=== PATIENT | male | born 1960 | race Caucasian/White ===

== ENCOUNTER 2024-02-25 08:58 | Outpatient (RCR) | payer OTHER, SELFPAY | END 2024-02-25 23:59 | disposition home or self-care (01) | LOC: RPT 08:58 | PROVIDERS: ATTENDING PHYSICIAN Physician Assistant | DX: G20.A1 Parkinson's disease without dyskinesia, without mention of fluctuations (principal); Z73.6 Limitation of activities due to disability | CPT/HCPCS: 97110; 97112; 97163; 97166; 97530; 97535 ==

== ENCOUNTER 2024-03-06 14:20 | Outpatient (RCR) | payer OTHER, SELFPAY | END 2024-03-06 23:59 | disposition home or self-care (01) | LOC: RPT 14:20 | PROVIDERS: ATTENDING PHYSICIAN Physician Assistant | DX: G20.A1 Parkinson's disease without dyskinesia, without mention of fluctuations (principal); Z73.6 Limitation of activities due to disability | CPT/HCPCS: 97110; 97112; 97530 ==

== ENCOUNTER → 2024-04-17 09:34 | Outpatient (REF) | payer OTHER, SELFPAY | LOC: RAD 09:34 | PROVIDERS: ATTENDING PHYSICIAN Physician Assistant | DX: M17.0 Bilateral primary osteoarthritis of knee (principal) | CPT/HCPCS: 73564 ==

== ENCOUNTER 2024-05-15 16:10 | Outpatient (RCR) | payer OTHER, SELFPAY | END 2024-05-15 23:59 | disposition home or self-care (01) | LOC: RPT 16:10 | PROVIDERS: ATTENDING PHYSICIAN Physician Assistant | DX: G89.29 Other chronic pain (principal); M25.561 Pain in right knee; M25.562 Pain in left knee; G20.A1 Parkinson's disease without dyskinesia, without mention of fluctuations; Z73.6 Limitation of activities due to disability | CPT/HCPCS: 97110; 97162; 97530 ==

== ENCOUNTER 2024-11-10 19:18 | Inpatient (IN) | payer OTHER, SELFPAY ==
[2024-11-10] VITALS (20 sets, daily range): BP systolic 119–154; BP diastolic 47–81; BMI 35.5; BMI 34.8
[2024-11-10 10:41] LABS: % Basophils 0.3 % (0-2); % Eosinophils 1.2 % (0-6); % Immature Granulocytes 0.7 % (0-0.5); % Monocytes 5.8 % (1.7-9.3); Absolute Eosinophils 0.1 10^3/uL (0-0.7); Absolute Immature Granulocytes 0.1 10^3/uL (0-0.05); Absolute Lymphocytes 1.6 10^3/uL (1.2-3.4); Absolute Monocytes 0.6 10^3/uL (0.1-0.6); Absolute Neutrophils 8.3 10^3/uL (1.4-6.5); Hematocrit 18.3 % (39.0-52.0); Hemoglobin 5.6 g/dL (13.0-18.0); Mean Corp Hgb Conc. 30.6 g/dL (33.0-37.0); Mean Corpuscular Volume 85.1 fL (80.0-94.0); Mean Platelet Volume 9.5 fL (7.4-10.4); Nucleated Red Blood Cells % 0 % (-); Platelet Count 184 10^3/uL (130-400); Red Blood Cell Count 2.15 10^6/uL (4.70-6.10); Red Cell Dist. Width 15.5 % (11.5-14.5); White Blood Cell Count 10.7 10^3/uL (4.8-10.8)
[2024-11-10 11:17] LABS: ALT (SGPT) 11 U/L (0-50); AST (SGOT) 24 U/L (17-59); Albumin 3.5 g/dl (3.5-5.0); Alkaline Phosphatase 84 U/L (38-126); Blood Urea Nitrogen 30 mg/dl (9-20); Calcium 8.6 mg/dl (8.4-10.2); Carbon Dioxide 23 mmol/L (22-30); Chloride 104 mmol/L (98-107); Estimated Creatinine Clearance 95 ml/min; Glucose 109 mg/dl (70-99); Potassium 4.2 mmol/L (3.5-5.1); Sodium 136 mmol/L (135-145); Total Bilirubin 0.5 mg/dl (0.2-1.3); Total Protein 5.5 g/dl (6.3-8.2); eGFR > 60.00
--- NOTE | 2024-11-10 11:29 | ED.GENMED ---
History of Present Illness
General
Chief Complaint: Abnormal Lab Value
Source: patient
Exam Limitations: none
Time Seen by Provider: 11/10/24 10:29
Nursing documentation reviewed up to this point in time: agreed with
History of Present Illness
History of Present Illness:
64-year-old male with history of Parkinson's, HTN, GERD, depression presents for low hemoglobin. He saw his PCP yesterday because he has had dyspnea on exertion, fatigue and lightheadedness. He denies chest pain. He denies abdominal pain. He has
been having maroon-colored stools for the past 7 days.
Denies NSAID use
Past History
Past History
ED Past Medical History: GERD, HTN, Psychiatric (Depression) and Other (Parkinson's)
ED Past Surgical History: Other (Hernia repair)
Social History
Tobacco: Non-smoker
Alcohol: None
Personal: Single
Living: alone
Employment: Employed
Review of Systems
Review of Systems
Allergies reviewed?: Yes
All Other Systems: ROS reviewed and negative except as documented in HPI and ROS
Constitutional: Reports fatigue; Denies fever
Respiratory: Reports trouble breathing (POA)
Cardiac: Denies chest pain
ABD/GI: Reports bloody stools; Denies abdominal pain, nausea, vomiting, diarrhea or anorexia
: Denies dysuria, frequency or difficulty voiding
Musculoskeletal: Reports no symptoms
Skin: Reports no symptoms
Neurological: Reports no symptoms
Phy Exam
Physical Exam
Physical Exam:
GENERAL: No acute distress. A&Ox3.
CONSTITUTIONAL: Afebrile.
EYES: clear, conjunctivae normal
ENMT: moist mucus membranes, Pharynx nl
RESPIRATORY: Regular respirations, nonlabored, lungs clear.
CARDIOVASCULAR: Regular rate and rhythm, no murmurs, no rubs.
GI: Soft, nontender, normal BS
Rectal: Maroon-colored stool heme positive
MUSCULOSKELETAL: Moves with ease. Well perfused.
SKIN: Warm, dry, pink
PSYCH: Normal mood and affect. Well kept, interactive and appropriate
NEUROLOGIC: Awake, alert and oriented. No focal neurological deficits
Sepsis
Sepsis Screening
Sepsis Assessment: Sepsis Ruled Out
Sepsis Screen
Sepsis Screen: Sepsis Ruled Out
Date: 11/12/24
Time: 08:05
Course
Orders/Labs/Results
Orders:
Orders
11/10/24 Lunch
Clear Liquid
At Your Request: Limited, Director Of Engineering Required
Clear Liquids: No red liquids
11/10/24 10:02
Type And Crossmatch [Type+Screen] Urgent
Complete Blood Count/With Diff Urgent
Comprehensive Metabolic Panel Urgent
Ferritin Routine
Comment: ADD ON
Folate Routine
Comment: ADD ON
Iron Routine
Comment: ADD ON
Total Iron Binding Routine
Comment: ADD ON
Vitamin B12 Routine
Comment: ADD ON
11/10/24 10:58
ABO2 Urgent
BBK Wristband Number:
Associate notified that ABO2 has been ordered: BLUE-ER
Date: 11/10/24
Time: 10:18
[employer] Officer ID: [id number]
11/10/24 11:09
* Blood Bank Products Urgent
Blood Bank Products: *Packed RBC Leuko(PRBC's)
Quantity: 2
Transfuse Today: Yes
Reason: Bleeding
Other reason: Anemia
IV Insert/Care/Rem.- Treatment PRN
11/10/24 11:42
Consult Gastroenterology [GASTROINTESTINAL CONSULT] Urgent
Consulting Provider: Qing Warner
Was physician already notified: Yes
Reason for consult: GI bleed, maroon stools, Hgb 5.6
11/10/24 12:08
Add On- LAB Routine
Tests Added?: iron, TIBC, % sat, ferritin, B12, folate
11/10/24 17:51
Code Status As Directed
Resuscitation Status: Full Code
Bisacodyl [Dulcolax] 10 mg RECTAL [id number] PRN
Docusate W/Senna [Senokot-S] 1 tablet PO BIDPRN PRN
Polyethylene Glycol Powder [Miralax] 17 grams PO DAILYPRN PRN
Head of Bed-Restrictions As Directed
Intake/ Output As Directed
Frequency: Per unit guidelines
Weight As Directed
Frequency: Daily
11/10/24 17:52
Activity As Directed
Activity Level: Out of Bed-Early Mobility
Vital Signs As Directed
Frequency: Per unit guidelines
11/10/24 17:57
Acetaminophen [Tylenol] 650 mg PO Q4HPRN PRN
Ondansetron Injectable [Zofran] 4 mg IV Q6HPRN PRN
11/10/24 17:59
Admit/Transfer Patient As Directed
Co-Sign Provider:
Level of Care: Inpatient admission
Assign to:: Telemetry
Physician / Group: Hospitalist
Diagnosis: GI bleeding
Reason for Telemetry: Other
Other Reason for Telemetry: GI bleeding
Date to Stop Telemetry: 11/12/24
Time to Stop Telemetry: 11:00
Reason for Hospitalization: Symptomatic anemia
Expected length of stay greater than two midnights?: Yes
ELOS- Estimated Length of Stay in days: 3
I certify the patient meets the requirements for IP care: Yes
Sequential Compression Device [Pneumatic Compression Sleeves] As Directed
Type: Knee high
DX Deep Vein Thrombosis Video Routine
11/10/24 18:00
0.9% Sodium Chloride 1000 ml [Nss] 1,000 ml IV 120 mls/hr
PRN Pain Medication Management As Directed
May give lesser potent ordered pain med per pt: Yes
preference::
Protocol:: Medication orders for pain may be administered in a
manner that supports deferring to patient preference
when the pt is:
- Requesting an ordered lesser potent pain medication.
Least to most potent pain medications are defined
as: acetaminophen < NSAID < tramadol < opioids
(morphine, oxycodone, hydromorphone).
- Requesting a lesser dose of the same medication IF
ORDERED.
- Requesting a less intrusive route of administration
if both routes are prescribed by the provider (PO <
IV).
11/10/24 19:43
Carbidopa/Levodopa [Sinemet 25-100] 2 tablet PO Q6
11/10/24 20:00
Pantoprazole [Protonix IV] 40 mg IV BID
11/10/24 20:52
H&H Q6H
Comment: 4 hours after last transfusion
11/11/24 Breakfast
Clear Liquid
At Your Request: Limited, Director Of Engineering Required
11/11/24 06:36
Comprehensive Metabolic Panel IN AM
Creatine Phosphokinase IN AM
Magnesium IN AM
NT-proBNP IN AM
11/11/24 08:00
Escitalopram Oxalate [Lexapro] 5 mg PO DAILY
Losartan [Cozaar] 100 mg PO DAILY
11/11/24 11:27
H&H Q6H
Comment: 4 hours after last transfusion
11/12/24 11:00
DC Protocol for Telemetry ONCE
Abnormal Lab Results
11/10/24
10:02
RBC 2.15 L 10^6/uL
(4.70-6.10)
Hgb 5.6 L* g/dL
(13.0-18.0)
Hct 18.3 L* %
(39.0-52.0)
MCH 26.0 L pg
(27.0-31.0)
MCHC 30.6 L g/dL
(33.0-37.0)
RDW 15.5 H %
(11.5-14.5)
Abs Immat Gran (auto) 0.1 H 10^3/uL
(0-0.05)
Absolute Neuts (auto) 8.3 H 10^3/uL
(1.4-6.5)
Immature Gran % 0.7 H %
(0-0.5)
Neutrophils % 77.0 H %
(42.2-75.2)
Lymphocytes % 15.0 L %
(20.5-51.1)
BUN 30 H mg/dl
(9-20)
Glucose 109 H mg/dl
(70-99)
Iron 32 L ug/dl
(49-181)
% Saturation 9 L %
(20-50)
Ferritin 6.8 L ng/ml
(17.9-464.0)
Total Protein 5.5 L g/dl
(6.3-8.2)
Crossmatch IS Only See Detail
11/10/24 15:00
11/10/24 10:02
Vital Signs
Initial and Last Documented VS:
Initial Vital Signs
Temp Pulse Resp BP Pulse Ox
97.7 F 105 22 154/72 99
11/10/24 09:48 11/10/24 09:48 11/10/24 09:48 11/10/24 09:48 11/10/24 09:48
Last Documented Vital Signs
Temp Pulse Resp BP Pulse Ox
98.0 F 81 18 129/70 97
11/12/24 03:12 11/12/24 03:12 11/12/24 03:12 11/12/24 03:12 11/12/24 03:12
MDM/Problems Addressed
Differential Diagnosis Includes:
Lower GI bleed
MDM/Problems Addressed:
64-year-old male with history of Parkinson's, HTN, GERD, depression presents for low hemoglobin. He saw his PCP yesterday because he has had dyspnea on exertion, fatigue and lightheadedness. He denies chest pain. He denies abdominal pain. He has
been having maroon-colored stools for the past 7 days.
Afebrile, NAD
Denies NSAID use
CBC: Hgb 5.6 VSS
CMP: BUN elevated as to be expected with a GI bleed, otherwise normal
2 units packed red blood cells ordered
11:40 a.m.
Hospitalist notified of admission
*Critical Care Note
Total Time (30-74mins, 75-104mins- exclusive of procedures): Not Applicable
ED Attending Note
-
Portions of this chart may have been created with voice recognition software.� Occasional wrong word or��sound alike� substitutions may have occurred due to the inherent limitations of voice recognition software.
Discharge Plan
Departure
Patient Disposition: Admit
Date of Disposition: 11/10/24
Time of Disposition: 12:00
Admit to: Med/Surg
Presentation/result/management discussed w/ accepting MD/DO: Hospitalist
Condition: Fair
Discharge Problem:
GI (gastrointestinal bleed)
Interventions
Interventions:
*Risk Screen - Suicide Last Done: 11/10/24 21:42
*General Assessment Last Done: 11/10/24 09:48
*Neglect/Abuse Screening Last Done: 11/10/24 09:48
ED- Fall Risk Assessment Last Done: 11/10/24 19:34
*ED COVID-19 Vaccine History Last Done: 11/10/24 21:42
*Nursing Disposition Last Done: 11/10/24 19:34
Discharge Date and Time
Discharge Date/Time: 11/10/24 19:34
--- NOTE | 2024-11-10 11:59 | CON.GI ---
Addendum entered and electronically signed by Qing Warner MD 11/10/24 17:01:
The patient was seen and examined by me independently in collaboration with the nurse practitioner.
Past medical history/social history/medications/allergies/family history reviewed.
Lab data and imaging data reviewed.
64-year-old gentleman past medical history of Parkinson's, diverticulosis, diverticular bleeding presenting with maroon, tarry, purple stool per patient report with ongoing dyspnea, fatigue, lightheadedness and found to have hemoglobin of 5.6. BUN
30. Most likely I suspect this is a lower GI bleed perhaps diverticular. However, somewhat atypical he has been having 1 bloody bowel movement a day which has lessened since Wednesday when he first started. Diverticular bleeding typically patients
have ongoing significant bright red blood per rectum. With the intermittent blood he has been seeing, perhaps he has an AVM that is bleeding intermittently. Although I have lower suspicion this is an upper GI source the patient does multiple times
tell me that his stool was black and tarry at times as well. Therefore, to ensure he does not have an upper GI bleed I will plan for upper endoscopy tomorrow. We discussed the risk, benefits, and alternatives to upper endoscopy. The risks include
bleeding, infection, perforation, missed lesion, and cardiopulmonary complications from anesthesia. Patient is agreeable. Patient is currently getting blood transfusions. Hemoglobin should be above 7. In the interim prior to the endoscopy, will
give Protonix IV 40 twice daily. Clear liquid diet today n.p.o. after midnight. If the upper endoscopy is negative, he likely would benefit from a colonoscopy timing TBD. If overnight he develops significant bleeding recommend CTA (normal Cr).
Original Note:
Consultation
-
Date/Time Consultation Requested: 11/10/24 1145
Date/Time Consultation Performed: 11/10/24 1200
Requesting Provider: GREG Lynn
Performing Provider: GREG Leonard, Nancy Warner MD
Reason for Consultation: anemia
Medical History
Chief Complaint / HPI
Chief Complaint: rectal bleeding
History of Present Illness:
Pt is a 64yo with hx parkinson's, divertiuculosis, prior diverticular bleed, hemorrhoids, depression, GERD, HTN, hernia repair presents with anemia and recently noted dyspnea, fatigue,and lightheadedness. Pt also reports maroon stool for last
week. Pt state bleeding started last Wednesday with large amount of dark red stool then noted daily with BM but less amount with stool this AM. On admission hbg 5.6 with normal MCV BUN 30. ,Last colonoscopy 09/2017 colonoscopy-[facility]- IH, grade III,
diverticulosis an hx EGD 2004 with Grade B esophagitis, reflux esophagitis, non bleeding gastritis, normal duodenum bx erosions no fungal or viral inclusions and 2005 EGD Schatzki's ring, normal duodenum bx neg forrester's. Last hbg 12.8 in June
2023.
Pt otherwise admits to GERD on chronic PPI but denies dysphagia, odynophagia, nausea, vomiting, abdominal pain, chronic diarrhea, constipation or prior bleeding. No NSAID or anticoagulation use.
Past Medical History
Past Medical History: GERD, HTN, Psychiatric (depression) and Other (Parkinson's, diverticulosis, diverticular bleed, hemorrhoids )
Social History
Tobacco: Non-Smoker
Alcohol: Occasional (very rare )
Drug: None
Living: Alone
Employment: Employed
Family History
Family History: Other (father with hx pacer, mother with parkinson's )
Allergies / Home Medications
Allergy/AdvReac Type Severity Reaction Status Date / Time
No Known Allergies Allergy Verified 11/10/24 09:54
�Medication �Instructions �Recorded
aspirin 81 mg tablet,delayed 81 mg PO DAILY 11/10/24
release
carbidopa 25 mg-levodopa 100 mg 2 tab PO Q6H 11/10/24
tablet
escitalopram oxalate 5 mg tablet 5 mg PO DAILY 11/10/24
(Lexapro)
losartan 100 mg tablet 100 mg PO DAILY 11/10/24
omeprazole 20 mg tablet,delayed 20 mg PO DAILY 11/10/24
release
Review of Systems
-
History Source: Patient
Constitutional: Reports No Symptoms
EENT: Reports No Symptoms
Respiratory: Reports Trouble Breathing (recent mild with exertion )
Cardiac: Reports No Symptoms
Abdomen/GI: Reports Bloody Stools
: Reports No Symptoms
Musculoskeletal: Reports No Symptoms
Skin: Reports No Symptoms
Neurological: Reports Dizzy and Weakness
Endocrine: Reports No Symptoms
Hematologic/Lymphatic: Reports Bleeding
Vital Signs
Temp Pulse Resp BP Pulse Ox
97.7 F 86 16 128/63 98
11/10/24 09:48 11/10/24 11:00 11/10/24 11:00 11/10/24 11:00 11/10/24 11:00
Physical Exam
Exam
General: Well Developed, Well Nourished and No Apparent Distress
HEENT: Normocephalic and Anicteric
Respiratory: Clear
Cardiac: Regular Rhythm
GI: Soft, Non Tender and Non Distended
Rectal: Other (heme + maroon stool in ER)
Musculoskeletal: No Clubbing and No Cyanosis
Skin: Warm and Dry
Neuro: Awake, Alert and AO x 3
Psych: Calm
Results
WBC 10.7 10^3/uL (4.8-10.8) 11/10/24 10:02
Hgb 5.6 g/dL (13.0-18.0) L* 11/10/24 10:02
Hct 18.3 % (39.0-52.0) L* 11/10/24 10:02
MCV 85.1 fL (80.0-94.0) 11/10/24 10:02
Plt Count 184 10^3/uL (130-400) 11/10/24 10:02
Absolute Neuts (auto) 8.3 10^3/uL (1.4-6.5) H 11/10/24 10:02
Sodium 136 mmol/L (135-145) 11/10/24 10:02
Potassium 4.2 mmol/L (3.5-5.1) 11/10/24 10:02
Chloride 104 mmol/L (98-107) 11/10/24 10:02
Carbon Dioxide 23 mmol/L (22-30) 11/10/24 10:02
BUN 30 mg/dl (9-20) H 11/10/24 10:02
Creatinine 0.9 mg/dL (0.7-1.3) 11/10/24 10:02
Calcium 8.6 mg/dl (8.4-10.2) 11/10/24 10:02
Total Bilirubin 0.5 mg/dl (0.2-1.3) 11/10/24 10:02
AST 24 U/L (17-59) 11/10/24 10:02
ALT 11 U/L (0-50) 11/10/24 10:02
Alkaline Phosphatase 84 U/L (38-126) 11/10/24 10:02
Diagnostic Image Results:
Prior GI Procedures:
09/2017 colonoscopy-[facility]- IH, grade III, diverticulosis
02/2016- colonoscopy [facility] non bleeding IH diverticulosis
03/2008 colonoscopy - Diverticulosis colon.- Internal, non bleeding, medium-sized hemorrhoids were found.
2004- EGD Grade B esophagitis, reflux esophagitis, non bleeding gastritis, normal duodenum bx erosions no fungal or viral inclusions
2--6 EGD Schatzki's ring, normal duodenum bx neg forrester's
Assessment / Plan
-
Pt is a 64yo with hx parkinson's, diverticulosis, prior diverticular bleed, hemorrhoids, depression, GERD, HTN, hernia repair presents with anemia and recently noted dyspnea, fatigue,and lightheadedness. Pt also reports maroon stool for last week.
Pt state bleeding started last Wednesday with large amount of dark red stool then noted daily with BM but less amount with stool this AM. On admission hbg 5.6 with normal MCV BUN 30. ,Last colonoscopy 09/2017 colonoscopy-[facility]- IH, grade III,
diverticulosis an hx EGD 2004 with Grade B esophagitis, reflux esophagitis, non bleeding gastritis, normal duodenum bx erosions no fungal or viral inclusions and 2005 EGD Schatzki's ring, normal duodenum bx neg forrester's. Last hbg 12.8 in June
2023.
-rectal bleeding
-symptomatic anemia
-hx diverticulosis and prior diverticular bleed years ago
other med problems:
-parkinson's
-GERD on chronic PPI
-schatzki's ring
-hemorrhoids
-depression
-HTN
hernia repair
PLAN:
etiology of anemia with bleeding related to underlying diverticular bleeding but noted prolonged over last week, colon lesion, hemorrhoids but noted darker in color, ectasia, vs other less likely Upper GI bleed as BUN minimal elevation at 30 and
has been on chronic PPI with no recent NSAID use
agree with transfusion
trend labs
cont PPI
will add iron studies, B12, folate
if increased bleeding consider CTA
will review with Dr. Warner for colonoscopy
ok for clear diet today
-
-
Thank you for consultation and allowing me to participate in the patient's care. Please call the telephone clerk telegraph office GI physician during the after hours with any questions or concerns.
[2024-11-10 13:11] LABS: Iron 32 ug/dl (49-181)
[2024-11-10 13:20] LABS: Percent Saturation 9 % (20-50); Total Iron Binding Capacity 334 ug/dl (261-462)
--- NOTE | 2024-11-10 14:47 | HPS.HSE ---
Addendum entered and electronically signed by Leon Vigil MD 11/10/24 20:32:
Attending Addendum-
I performed a history and physical exam of the patient and discussed his management with the resident. I reviewed the resident's note and agree with the documented findings and plan of care CC/HPI-Asked to come to ED by PCP due to low hemoglobin. He
has been having maroon colored stools for one week. Initially had 'explosion of blood' in bathroom but has decreased in quantity over the past week. States he has black tarry stools at times. Has had worsening MONGE and fatigue. Denies CP palps
syncope. Full 12 point ROS reviewed and negative except as documented Exam- vitals reviewed in EMR GEN-NAD heart RRR lungs clear abd soft LE no edema
Plan:
# Acute GI bleed with acute blood loss anemia
- transfuse 2 units PRBC
- likely upper
- start protonix IV BID
- clear liquid diet
- NPOpMN for ENDO on 11/11 per GI
- trend CBC
# Parkinson's Disease- cont Sinemet
# Depression- cont Lexapro
# HTN- cont losartan
# GERD- cont IV PPI
DVTp-SCDS
CODE Full
ACP
Patient consented to discuss, was alone, time spent explanation of advance directives, changes in health status, patient�s health care wishes if the patient becomes unable to make health decisions, goals of care, code status, and prognosis- 16
minutes
Time spent coordinating care, review of plan of care with resident, personally reviewed previous records in EMR, med rec, labs, radiology, d/w nursing, GI total time documented is exclusive of any additional time listed that was spent in advance
care planning discussion -�75 minutes
Original Note:
Family Physician
-
Family Physician: MISAEL Blanton
Chief Complaint
-
GI bleeding
History of Present Illness
64-year-old male with PMH of Parkinson's disease, hypertension, GERD, diverticulosis with history of diverticular bleed, hemorrhoids, MDD who presented to ED with MONGE, fatigue and lightheadedness. Reports maroon-colored stools for the past 7
days that gradually improved. He was seen by his PCP yesterday and was asked to come to the hospital. In the ED, his Hb was 5.6. Colonoscopy 2018 remarkable for diverticulosis and his last Hb in 2023 was 12.8. Patient denies chest pain,
abdominal pain, fever, chills, palpitations.
Medical History
Past Medical History
Past Medical History: Reports GERD, HTN, Psychiatric and Other (Parkinson's disease, diverticulosis, diverticular bleed, hemorrhoids)
Past Surgical History: Reports Other (Hiatal hernia repair)
Social History
Tobacco: Non-smoker
Alcohol: Occasional
Drug: None
Personal: Single
Living: Alone
Employment: Employed
Family History
Family History: Not pertinent
Allergies / Home Medications
Allergies reflects when Allergies were last updated in [facility].
Home Medications with original date entered in [facility]
Allergy/Medication List:
Allergies
Allergy/AdvReac Type Severity Reaction Status Date / Time
No Known Allergies Allergy Verified 11/10/24 09:54
Review of Systems
-
A 12 point ROS was completed and negative except as noted: Yes
Physical Exam
Vital Signs
Vital Signs
Temp Pulse Resp BP Pulse Ox
97.7 F 88 17 132/60 98
11/10/24 12:42 11/10/24 12:42 11/10/24 12:42 11/10/24 12:42 11/10/24 11:00
Physical Exam
General: Well Developed, Comfortable and Conversant
HEENT: NormoCephalic and Anicteric
Respiratory: Clear
Cardiac: S1/S2 and Regular Rhythm; No Murmur or Rub
GI: Soft, Non Tender, Non Distended and Normal Bowel Sounds; No Organomegaly
Rectal: Deferred by Provider
Musculoskeletal: No Clubbing, No Cyanosis and No Edema
Skin: Warm and Dry; No Rash
Neuro: Awake, AO x 3 and Nonfocal/grossly intact
Psych: Calm
Laboratory Results
-
11/10/24 10:02
11/10/24 10:02
Laboratory Results
Total Bilirubin 0.5 mg/dl (0.2-1.3) 11/10/24 10:02
AST 24 U/L (17-59) 11/10/24 10:02
ALT 11 U/L (0-50) 11/10/24 10:02
Alkaline Phosphatase 84 U/L (38-126) 11/10/24 10:02
Data Reviewed
-
Lab Data: Labs Reviewed by me and Discussed with Physician
Old Records: Reviewed
Impression/Plan
-
IMPRESSION: 64-year-old male with PMH of Parkinson's disease, diverticulosis with diverticular bleeding presenting with 1 week history of maroon palpable colored stool, weakness, MONGE and lightheadedness found to have Hb of 5.6 on presentation to the
ED.
Assessment/plan:
#Symptomatic anemia-Hb 5.6 at presentation.
-Admit to telemetry.
-Iron deficiency anemia from subacute GI bleed most likely diverticular in origin; upper GI bleed less likely given chronic PPI and minimal BUN elevation.
-History of hemorrhoids and diverticular bleeding.
-Vitamin B12, folate WNL.
-Transfuse 2U PRBC.
-Follow H&H.
-Transfuse if Hb <7.0.
-Hold aspirin for now.
-If continues to bleed consider CT angiogram and IR consult.
-Continue IV PPI 40 mg BID.
-Otherwise follow CBC in a.m.
#Parkinson's disease
-Continue carbidopa-levodopa
#GERD
-On chronic PPI.
-IV Protonix 40 mg BID.
#Essential hypertension
-Continue losartan 100 mg p.o. daily.
#MDD
-Continue Lexapro 5 mg p.o. daily.
#Schatzki ring
DVT PPx: SCDs
CODE STATUS: Full code
[2024-11-10 16:48] LABS: Ferritin 6.8 ng/ml (17.9-464.0)
[2024-11-10 17:19] LABS: Folate 11.6 ng/ml (2.76-20); Vitamin B12 241 pg/ml (239-931)
--- NOTE | 2024-11-10 21:00 | PTCARENOTE ---
Pt. was admitted from E.D., AAO x 3, skin intact, NSR with BBC on monitor, call wilkinson within reach.
[2024-11-10 21:09] LABS: Hematocrit 20.3 % (39.0-52.0); Hemoglobin 6.5 g/dL (13.0-18.0)
[2024-11-10] MEDS: NSS 1000 IV (21:24)
[2024-11-10] MEDS: PROTONIX IV 40 MG IV (21:32)
[2024-11-10] MEDS: NSS (PRESERVATIVE FREE) 10 ML IV (21:32)
[2024-11-10] MEDS: SINEMET 25-100 2 TABLET PO (21:32)
--- NOTE | 2024-11-10 21:42 | PTCARENOTE ---
Pt's hgb was 6.5, notified GREG Gallgeo, ordered one unit PRBC's and infused.
[2024-11-11] VITALS (11 sets, daily range): BP systolic 116–142; BP diastolic 59–73; BMI 35.0
--- NOTE | 2024-11-11 00:07 | W.PN.UPDATE ---
Update Note
Progress Note Update
Received critical value at 20:52, Hgb 6.5/Hct 20.3. Ordered 1 unit PRBC's to transfuse now. Will repeat CBC in am to trend Hgb.
[2024-11-11] MEDS: SINEMET 25-100 2 TABLET PO ×4 (04:15→17:23)
[2024-11-11] MEDS: NSS 1000 IV ×2 (04:20→13:01)
[2024-11-11 06:44] LABS: Hemoglobin 7.3 g/dL (13.0-18.0)
[2024-11-11 06:51] LABS: Hematocrit 22.2 % (39.0-52.0); Hemoglobin 7.2 g/dL (13.0-18.0); Mean Corp Hgb Conc. 32.4 g/dL (33.0-37.0); Mean Corpuscular Hgb 27.4 pg (27.0-31.0); Mean Corpuscular Volume 84.4 fL (80.0-94.0); Red Blood Cell Count 2.63 10^6/uL (4.70-6.10); Red Cell Dist. Width 15.1 % (11.5-14.5); White Blood Cell Count 6.8 10^3/uL (4.8-10.8)
[2024-11-11 07:06] LABS: NT-proBNP 541 pg/ml
[2024-11-11 07:43] LABS: Mean Platelet Volume 9.5 fL (7.4-10.4); Platelet Count 125 10^3/uL (130-400)
[2024-11-11 07:44] LABS: ALT (SGPT) < 10 U/L (0-50); AST (SGOT) 23 U/L (17-59); Alkaline Phosphatase 80 U/L (38-126); Blood Urea Nitrogen 19 mg/dl (9-20); Calcium 7.8 mg/dl (8.4-10.2); Carbon Dioxide 26 mmol/L (22-30); Chloride 106 mmol/L (98-107); Creatine Phosphokinase 155 U/L (55-170); Estimated Creatinine Clearance 95 ml/min; Glucose 116 mg/dl (70-99); Magnesium 2.1 mg/dl (1.6-2.3); Sodium 136 mmol/L (135-145); Total Bilirubin 1.2 mg/dl (0.2-1.3); eGFR > 60.00
[2024-11-11] MEDS: LEXAPRO 5 MG PO (08:05)
[2024-11-11] MEDS: COZAAR 100 MG PO (08:05)
[2024-11-11] MEDS: NSS (PRESERVATIVE FREE) 10 ML IV (08:05)
[2024-11-11] MEDS: PROTONIX IV 40 MG IV (08:05)
[2024-11-11 11:53] LABS: Hematocrit 23.8 % (39.0-52.0); Hemoglobin 7.7 g/dL (13.0-18.0)
--- NOTE | 2024-11-11 14:18 | W.PN.HOSP.TC ---
Today's Communication/Plan
-
Stop losartan, PPI IV
Plan for colonoscopy on Monday 11/13
If brisk bleed clinically noted, perform CT angio
Assessment / Plan
Assessment / Plan
Physical Exam
General: Well Developed, Comfortable and Conversant
HEENT: NormoCephalic and Anicteric
Respiratory: Clear
Cardiac: S1/S2 and Regular Rhythm; No Murmur or Rub
GI: Soft, Non Tender, Non Distended and Normal Bowel Sounds; No Organomegaly
Rectal: Deferred by Provider
Musculoskeletal: No Clubbing, No Cyanosis and No Edema
Skin: Warm and Dry; No Rash
Neuro: Awake, AO x 3 and Nonfocal/grossly intact
Psych: Calm
#Symptomatic anemia
#Acute blood loss anemia
� EGD with ventral hernia, small
� No obvious bleeding
� Plan for colonoscopy on Monday 11/13
� If significant bleeding, worsening�need to perform CTA
� Maintain hemoglobin goal greater than 7, monitor daily for now
� Maintain 2 peripheral IVs
� Transfuse as needed
�Continue holding aspirin
�Can discontinue PPI
#Parkinson's disease
-Continue carbidopa-levodopa
#GERD
-On chronic PPI.
-Can resume upon discharge
#Essential hypertension
�Hold losartan 100 mg p.o. daily.
#MDD
-Continue Lexapro 5 mg p.o. daily.
#Schatzki ring
DVT PPx: SCDs
CODE STATUS: Full code
Total time spent on today's encounter was 50 minutes which included time spent in counseling the patient/family regarding diagnosis and treatment plan as listed above, goals of care, and symptom management. Case was discussed with nursing staff,
specialists, and care coordinators/case management. All labs and imaging personally reviewed by me. Remainder the time spent in detailed review of previous records, lab data, imaging, and other medical provider documentation.
Anticipated Discharge: > 48 hours
Subjective/Interval History
-
Date of Service: November 11, 2024
For endoscopy today, no obvious bleeding, small hiatal hernia.
Objective Data
-
Labs:
Laboratory Results
11/11/24 11/11/24 11/11/24
03:00 06:36 06:36
WBC 6.8
Hgb Cancelled 7.2 L 7.3 L
Hct Cancelled 22.2 L
Plt Count 125 L D
Sodium 136
Potassium 4.0
Chloride 106
Carbon Dioxide 26
BUN 19
Creatinine 0.9
Glucose 116 H
Calcium 7.8 L
Total Bilirubin 1.2
AST 23
ALT < 10
Alkaline Phosphatase 80
11/11/24
11:27
WBC
Hgb 7.7 L
Hct 23.8 L
Plt Count
Sodium
Potassium
Chloride
Carbon Dioxide
BUN
Creatinine
Glucose
Calcium
Total Bilirubin
AST
ALT
Alkaline Phosphatase
Vital Signs:
Vital Signs
Temp Pulse Resp BP Pulse Ox
97.8 F 64 16 119/67 96
11/11/24 11:24 11/11/24 11:24 11/11/24 11:24 11/11/24 11:24 11/11/24 11:24
I&O
11/10/24 11/11/24 11/12/24
06:59 06:59 06:59
Intake Total 0 / 2120
Output Total 850 / 850
Balance 1270 / 1270
Review of Systems
-
History Source: Patient
All other systems: Not reviewed unless documented
Data Reviewed
-
Labs: Labs Reviewed by me
--- NOTE | 2024-11-11 15:05 | CM ---
CM reviewed chart, patient seen bedside, consult received for Advanced Directive. Patient reports he thinks he already has completed this paperwork, is agreeable to paperwork in case he has not. Patient resides in [place] in an apartment through
[facility]. Patient reports he has Parksinson's but is still ambulatory, uses a walker or walking stick, has a shower chair, attends [employer] and '[employer]' therapy, works communications department head. Patient denies VN or SNF history. Patient PCP
Janie Burnham, confirms pharmacy [facility], confirms prescription coverage. Per chart, patient scheduled for colonoscopy Monday 11/13. CM will continue to follow for all discharge planning needs.
Plan; home no needs likely, watch for possible VN needs.
[2024-11-11] MEDS: MIRALAX 68 GRAMS PO (17:24)
[2024-11-12] MEDS: SINEMET 25-100 2 TABLET PO ×5 (00:35→23:59)
[2024-11-12 03:12] VITALS: BP 129/70
[2024-11-12 06:00] LABS: Hematocrit 23.2 % (39.0-52.0); Hemoglobin 7.5 g/dL (13.0-18.0); Mean Corp Hgb Conc. 32.3 g/dL (33.0-37.0); Mean Corpuscular Hgb 27.3 pg (27.0-31.0); Mean Corpuscular Volume 84.4 fL (80.0-94.0); Mean Platelet Volume 9.8 fL (7.4-10.4); Platelet Count 137 10^3/uL (130-400); Red Blood Cell Count 2.75 10^6/uL (4.70-6.10); White Blood Cell Count 6.7 10^3/uL (4.8-10.8)
[2024-11-12 06:06] LABS: Blood Urea Nitrogen 12 mg/dl (9-20); Calcium 7.9 mg/dl (8.4-10.2); Carbon Dioxide 25 mmol/L (22-30); Chloride 105 mmol/L (98-107); Estimated Creatinine Clearance 106 ml/min; Glucose 114 mg/dl (70-99); Potassium 3.9 mmol/L (3.5-5.1); Sodium 137 mmol/L (135-145); eGFR > 60.00
[2024-11-12 07:00] VITALS: BP 125/74
[2024-11-12] MEDS: LEXAPRO 5 MG PO (08:42)
--- NOTE | 2024-11-12 10:14 | W.PN.GI.CBS2 ---
Today's Communication / Plan
-
cscope tmwr
Assessment / Plan
-
64-year-old gentleman past medical history of Parkinson's, diverticulosis, diverticular bleeding presenting with maroon, tarry, purple stool per patient report with ongoing dyspnea, fatigue, lightheadedness and found to have hemoglobin of 5.6. BUN
30. Most likely I suspect this is a lower GI bleed perhaps diverticular. However, somewhat atypical he has been having 1 bloody bowel movement a day which has lessened since Wednesday when he first started. Diverticular bleeding typically patients
have ongoing significant bright red blood per rectum. With the intermittent blood he has been seeing, perhaps he has an AVM that is bleeding intermittently. EGD yesterday negative.
Plan for colonoscopy tomorrow. We discussed the risks of colonoscopy including bleeding, infection, missed lesion, incomplete procedure, perforation and cardiopulmonary complications from anesthesia. Patient agreed to the procedure. Given miralax
last night will do full bowel prep tonight.
If cscope negative plan VCE outpatient.
If overnight he develops significant bleeding recommend CTA (normal Cr).
Subjective
Subjective
Date of Service: November 12, 2024
Small amount of blood in stool last pm
Objective
Data Reviewed
Laboratory Data:
Laboratory Results
11/12/24 05:02
11/12/24 05:02
Laboratory Results
Magnesium 2.1 mg/dl (1.6-2.3) 11/11/24 06:36
Total Bilirubin 1.2 mg/dl (0.2-1.3) 11/11/24 06:36
AST 23 U/L (17-59) 11/11/24 06:36
ALT < 10 U/L (0-50) 11/11/24 06:36
Alkaline Phosphatase 80 U/L (38-126) 11/11/24 06:36
Vital Signs and I&O:
Vital Signs
Temp Pulse Resp BP Pulse Ox
97.0 F 73 18 125/74 96
11/12/24 07:00 11/12/24 07:00 11/12/24 07:00 11/12/24 07:00 11/12/24 07:00
I&O
11/11/24 11/12/24 11/13/24
06:59 06:59 06:59
Intake Total 2120 / 2120 480 / 480
Output Total 850 / 850 675 / 675
Balance 1270 / 1270 -195 / -195
Physical Exam
Physical Exam
HEENT: Anicteric
Cardiology: Normal Sinus Rhythm
Pulmonary: Clear
GI: Non Distended and Non Tender
--- NOTE | 2024-11-12 11:57 | W.PN.HOSP.TC ---
Today's Communication/Plan
-
monitor hgb, transfuse as needed
CScope tomorrow
Assessment / Plan
Assessment / Plan
Physical Exam
General: Well Developed, Comfortable and Conversant
HEENT: NormoCephalic and Anicteric
Respiratory: Clear
Cardiac: S1/S2 and Regular Rhythm; No Murmur or Rub
GI: Soft, Non Tender, Non Distended and Normal Bowel Sounds; No Organomegaly
Rectal: Deferred by Provider
Musculoskeletal: No Clubbing, No Cyanosis and No Edema
Skin: Warm and Dry; No Rash
Neuro: Awake, AO x 3 and Nonfocal/grossly intact
Psych: Calm
#Symptomatic anemia
#Acute blood loss anemia
� EGD with ventral hernia, small
� No obvious bleeding
� Plan for colonoscopy on Monday 11/13
� If significant bleeding, worsening�need to perform CTA
� Maintain hemoglobin goal greater than 7, monitor daily for now
� Maintain 2 peripheral IVs
� Transfuse as needed
�Continue holding aspirin
�Can discontinue PPI
#Parkinson's disease
-Continue carbidopa-levodopa
#GERD
-On chronic PPI.
-Can resume upon discharge
#Essential hypertension
�Hold losartan 100 mg p.o. daily.
#MDD
-Continue Lexapro 5 mg p.o. daily.
#Schatzki ring
DVT PPx: SCDs
CODE STATUS: Full code
Anticipated Discharge: 24 - 48 hours
Subjective/Interval History
-
Date of Service: November 12, 2024
no acute events
Objective Data
-
Labs:
Laboratory Results
11/12/24
05:02
WBC 6.7
Hgb 7.5 L
Hct 23.2 L
Plt Count 137
Sodium 137
Potassium 3.9
Chloride 105
Carbon Dioxide 25
BUN 12
Creatinine 0.8
Glucose 114 H
Calcium 7.9 L
Vital Signs:
Vital Signs
Temp Pulse Resp BP Pulse Ox
97.0 F 73 18 125/74 96
11/12/24 07:00 11/12/24 07:00 11/12/24 07:00 11/12/24 07:00 11/12/24 07:00
I&O
11/11/24 11/12/24 11/13/24
06:59 06:59 06:59
Intake Total 2120 / 2120 480 / 480
Output Total 850 / 850 675 / 675
Balance 1270 / 1270 -195 / -195
Review of Systems
-
History Source: Patient
All other systems: Not reviewed unless documented
Data Reviewed
-
Labs: Labs Reviewed by me
[2024-11-12 15:00] VITALS: BP 170/80
[2024-11-12] MEDS: NULYTELY SOLUTION 2 LITERS PO (17:21)
[2024-11-12 23:50] VITALS: BP 137/84
[2024-11-13] VITALS (10 sets, daily range): BP systolic 16–143; BP diastolic 69–83; BMI 34.6
[2024-11-13] MEDS: NULYTELY SOLUTION 2 LITERS PO (05:00)
[2024-11-13] MEDS: SINEMET 25-100 2 TABLET PO ×4 (05:09→23:03)
--- NOTE | 2024-11-13 06:42 | PTCARENOTE ---
Taking last part of bowel prep. Stool still brown w/solid particles.
--- NOTE | 2024-11-13 07:44 | W.PN.HOSP.TC ---
Addendum entered and electronically signed by Leon Vigil MD 11/13/24 21:44:
Attending Addendum-I saw and evaluated the patient. I reviewed the resident�s note and agree with findings and plan as documented in the resident�s note. Denies CP palps syncope. No further dark stools or BRBPR. seen post colonoscopy and barium
enema Still has MONGE but improbved. Full 12 point ROS reviewed and negative except as documented Exam- vitals reviewed in EMR GEN-NAD heart RRR lungs clear abd soft LE no edema
Plan:
# Acute GI bleed with acute blood loss anemia
- transfused 3 units PRBC total
- EGD 11/11- Small hiatal hernia, Normal stomach, Normal examined duodenum
- Colonoscopy 11/13- Diverticulosis in the sigmoid colon.
- Erythematous mucosa in the sigmoid colon.
- Congested mucosa in the sigmoid colon.
- Internal hemorrhoids.
-check GG enema due to incomplete colonoscopy/congestion inability to pass scope
-CRS consult per GI
-trend CBC hb 8.7
-transfuse for HB<7
# Parkinson's Disease- cont Sinemet
# Depression- cont Lexapro
# HTN- losartan on hold restart when able
# GERD-PPI DC'd
DVTp-SCDS
CODE Full
Time spent coordinating care, review of plan of care with resident, personally reviewed records in EMR, med rec, consults, notes, labs, radiology, d/w nursing � 53 mins
Original Note:
Today's Communication/Plan
-
Colonoscopy today
Follow CBC
Fall precautions
PT/OT
Assessment / Plan
Assessment / Plan
IMPRESSION: 64-year-old male with PMH of Parkinson's disease, diverticulosis with diverticular bleeding presenting with 1 week history of maroon palpable colored stool, weakness, MONGE and lightheadedness found to have Hb of 5.6 on presentation to the
ED.
Assessment/plan:
#Symptomatic acute blood loss anemia-secondary to acute GI bleed.
-Hb improved to 7.5 s/p 3U PRBC transfusions, has not required transfusion since 2 days.
-Suspect diverticular bleeding, AVM; upper GI bleed less likely with chronic PPI.
-EGD 11/11 with no obvious source of bleeding.
-NPO
-Colonoscopy planned for today; diffuse diverticulosis and internal hemorrhoids found on colonoscopy in 2016.
-Consider CTA if severe bleeding is found, otherwise VCE outpatient bowel GI.
-Follow CBC and transfuse as needed.
-Monitor on telemetry.
-PPI discontinued given normal EGD.
-Hold aspirin for now.
-GI appreciated.
-PT/OT
#Parkinson's disease
-Continue carbidopa-levodopa
#GERD
-Was on chronic PPI.
-EGD with small hiatal hernia.
-Stop PPI per GI.
#Essential hypertension
-Continue losartan 100 mg p.o. daily.
#MDD
-Continue Lexapro 5 mg p.o. daily.
#Schatzki ring
DVT PPx: SCDs
CODE STATUS: Full code
Anticipated Discharge: 24 - 48 hours
Subjective/Interval History
-
Date of Service: November 13, 2024
I have seen and examined the patient. Patient seen at. Sitting comfortably on the chair in no acute distress. Reports no acute complaints, denies weakness, denies chest pain, shortness of breath, palpitations, fever or chills. Denies further
hematochezia. Denies nausea, vomiting, diarrhea. Subjectively, he looks better today.
Objective Data
-
Labs:
Laboratory Results
11/13/24
07:16
WBC Pending
Hgb Pending
Hct Pending
Plt Count Pending
Sodium Pending
Potassium Pending
Chloride Pending
Carbon Dioxide Pending
BUN Pending
Creatinine Pending
Glucose Pending
Calcium Pending
Vital Signs:
Vital Signs
Temp Pulse Resp BP Pulse Ox
97.3 F 76 18 137/84 100
11/12/24 23:50 11/12/24 23:50 11/12/24 23:50 11/12/24 23:50 11/12/24 23:50
I&O
11/12/24 11/13/24 11/14/24
06:59 06:59 06:59
Intake Total 480 / 480 600 / 600 920 / 920
Output Total 675 / 675 1000 / 1000 1600 / 1600
Balance -195 / -195 -400 / -400 -680 / -680
Review of Systems
-
History Source: Patient
All other systems: Not reviewed unless documented
Physical Exam
-
General: Well Developed, No Apparent Distress and Comfortable; Negative Respiratory Distress, Fever or Chills
HEENT: Normocephalic and Moist Mucous Membranes
Respiratory: Clear to Auscultation and Non Labored Respirations; Negative Wheezes or Crackles
Cardiac: Regular Rhythm and S1/S2; Negative Murmur or Rub
GI: Soft, Nontender, Nondistended and Normal Bowel Sounds
Musculoskeletal: No Clubbing and No Edema
Skin: Warm and Dry
Neuro: Awake and AO x 3
Psych: Calm
Data Reviewed
-
Labs: Labs Reviewed by me
[2024-11-13] MEDS: LEXAPRO 5 MG PO (08:08)
[2024-11-13 09:22] LABS: Hematocrit 27.8 % (39.0-52.0); Hemoglobin 8.7 g/dL (13.0-18.0); Mean Corp Hgb Conc. 31.3 g/dL (33.0-37.0); Mean Corpuscular Hgb 26.9 pg (27.0-31.0); Mean Corpuscular Volume 86.1 fL (80.0-94.0); Mean Platelet Volume 10.1 fL (7.4-10.4); Platelet Count 188 10^3/uL (130-400); Red Blood Cell Count 3.23 10^6/uL (4.70-6.10); Red Cell Dist. Width 15.4 % (11.5-14.5); White Blood Cell Count 8.1 10^3/uL (4.8-10.8)
[2024-11-13 09:48] LABS: Blood Urea Nitrogen 11 mg/dl (9-20); Calcium 8.3 mg/dl (8.4-10.2); Carbon Dioxide 27 mmol/L (22-30); Chloride 101 mmol/L (98-107); Estimated Creatinine Clearance 94 ml/min; Glucose 118 mg/dl (70-99); Potassium 4.1 mmol/L (3.5-5.1); Sodium 137 mmol/L (135-145); eGFR > 60.00
--- NOTE | 2024-11-13 11:50 | CON.CRS ---
Consultation
-
Date/Time Consultation Requested: 11/13/2024, 11:20
Date/Time Consultation Performed: 11/13/2024, 11:45
Requesting Provider: Nancy Talbot MD
Performing Provider: Sumanth Martinez MD
Reason for Consultation: possible SCAD
Medical History
-
Chief Complaint: rectal bleeding/weakness
History of Present Illness:
64-year-old male, with a past medical history of Parkinson's disease, hypertension, depression, diverticulosis presents to [facility] after a week and a half of dark cloudy rectal bleeding. The patient states the bleeding occurs only with a
bowel movement and ranges in mild to moderate. His bowel movements are usually once a day and they are unchanged in nature. 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
'woozy'. He went to the emergency department given the symptoms. He denies any abdominal or rectal pain. He has no issues with urination. He denies fevers, chills, or nausea or vomiting. He denies any weight loss. He has no family history of
colorectal surgery. He is not on any blood thinners. His prior surgeries include a hiatal hernia repair. In 2016 he underwent a colonoscopy by Dr. Freeman due to rectal bleeding. There was diverticulosis in the entire colon and nonbleeding
internal hemorrhoids. He again underwent a colonoscopy in [address] Rodriguez due to bleeding which showed the same findings. Prior to this current episode he did not have bleeding for years. He denies any prior diverticulitis attack.
On admission to the ER he was found to have a hemoglobin of 5.6. In total he has received 3 units of packed red blood cells. His vitals have remained normal. Gastroenterology saw the patient in consult and performed an EGD which was negative. A
colonoscopy was then performed today. There was diverticulosis in the sigmoid colon, erythematous and congested mucosa in the sigmoid colon, and internal hemorrhoids. Given the amount of congestion, the scope was unable to pass the sigmoid. A
Gastrografin enema has been ordered. Given the above, we have been consulted for surgical opinion.
Past Medical History
Past Medical History: Other (GERD, HTN, Parkinson's)
Past Surgical History: Hernia Repair (hiatal hernia repair)
Social History
Tobacco: Non-Smoker
Alcohol: Occasional
Drug: None
Living: Alone
Employment: Employed
Family History
Family History: Reviewed & Not Pertinent
Allergies / Home Medications
Allergy/AdvReac Type Severity Reaction Status Date / Time
No Known Allergies Allergy Verified 11/10/24 09:54
�Medication �Instructions �Recorded �Confirmed �Type
aspirin 81 mg tablet,delayed 81 mg PO DAILY Blood Clot 11/10/24 11/10/24 History
release Prevention/Tx
carbidopa 25 mg-levodopa 100 mg 2 tab PO Q6H movement disorder 11/10/24 11/10/24 History
tablet
escitalopram oxalate 5 mg tablet 5 mg PO DAILY Mental Health 11/10/24 11/10/24 History
(Lexapro)
losartan 100 mg tablet 100 mg PO DAILY Blood Pressure 11/10/24 11/10/24 History
omeprazole 20 mg tablet,delayed 20 mg PO DAILY Gastrointestinal 11/10/24 11/10/24 History
release Issue
Review of Systems
-
History Source: Patient
Constitutional: Fatigue
Abdomen/GI: Bloody Stools
A 10 point review of systems was completed, and was negative except as per HPI.
Physical Exam
Vital Signs
Temp 97.2 F 11/13/24 11:10
Pulse 78 11/13/24 11:48
Resp Rate 16 11/13/24 11:48
Blood pressure 141/77 11/13/24 11:48
SaO2 99 11/13/24 11:48
11/12/24 11/13/24 11/14/24
06:59 06:59 06:59
Actual Weight 103.192 kg
Body Mass Index (BMI) 34.6
Lab Results / Allergies
11/13/24 07:16
11/13/24 07:16
WBC 8.1 10^3/uL (4.8-10.8) 11/13/24 07:16
Hgb 8.7 g/dL (13.0-18.0) L 11/13/24 07:16
Hct 27.8 % (39.0-52.0) L 11/13/24 07:16
Plt Count 188 10^3/uL (130-400) D 11/13/24 07:16
Abs Immat Gran (auto) 0.1 10^3/uL (0-0.05) H 11/10/24 10:02
Neutrophils % 77.0 % (42.2-75.2) H 11/10/24 10:02
Allergy/AdvReac Type Severity Reaction Status Date / Time
No Known Allergies Allergy Verified 11/10/24 09:54
Physical Exam
General: Well Developed, Well Nourished and No Apparent Distress
GI: Soft, Non Tender and Distended (mild)
Skin: Warm and Dry
Neuro: AO x 3
Psych: Calm
Data Reviewed
-
Medical Tests (Nuc Med, Echo etc): Image Personally Visualized and interpreted, Report Reviewed by me, Discussed with Physician and Discussed with Patient
Labs: Labs Reviewed by me, Discussed with Physician and Discussed with Patient
Old Records: Reviewed
Assessment / Plan
-
Assessment: 64yo male with a PMH of parkinson's and diverticulosis presents with a week and a half of dark clotty rectal bleeding, found with a hemoglobin of 5.6 on admission s/p 3 units PRBCs, and congested mucosa in the sigmoid colon, scope unable
to pass
Plan:
-Continue NPO for now
-Gastrogaffin enema ordered
-Follow labs and transfuse PRN
-Plans to follow once GE has resulted
--- NOTE | 2024-11-13 15:34 | CM ---
CM reviewed chart, patient for colonoscopy today. PT/OT consulted, will watch for further recommendations. CM will continue to follow for all discharge planning needs.
Plan; home no needs, watch for PT/OT evals for possible VN needs
[2024-11-14] MEDS: SINEMET 25-100 2 TABLET PO ×2 (05:09→11:45)
[2024-11-14 06:00] VITALS: BMI 34.7
--- NOTE | 2024-11-14 07:06 | W.PN.HOSP.TC ---
Addendum entered and electronically signed by Leon Vigil MD 11/14/24 23:28:
Attending Addendum-I saw and evaluated the patient. I reviewed the resident�s note and agree with findings and plan as documented in the resident�s note. Denies CP palps syncope. No further dark stools or BRBPR. 'im ready to go home doc!' Full 12
point ROS reviewed and negative except as documented Exam- vitals reviewed in EMR GEN-NAD heart RRR lungs clear abd soft LE no edema
Plan:
# Acute GI bleed with acute blood loss anemia Lower GI Diverticular sigmoid diverticulitis
- transfused 3 units PRBC total
- EGD 11/11- Small hiatal hernia, Normal stomach, Normal examined duodenum
- Colonoscopy 11/13- Diverticulosis in the sigmoid colon.
- Erythematous mucosa in the sigmoid colon.
- Congested mucosa in the sigmoid colon.
- Internal hemorrhoids.
-barium enema-There is extensive diverticulosis throughout the colon. There is relative narrowing of the colon in the sigmoid colon with mucosal thickening which suggests possible sigmoid diverticulitis
-DC on PO abx x 7 days
-CRS consult per GI - no OR
- stable for DC home if norman diet
# Parkinson's Disease- cont Sinemet
# Depression- cont Lexapro
# HTN- losartan on hold restart when able
# GERD-PPI DC'd
DVTp-SCDS
CODE Full
Time spent coordinating care, DC planning, review of DC plan of care with resident, transition of care, review of records, med rec/scripts sent electronically, consults, notes, d/w consultants, nursing, family, and CM� 33 mins
Original Note:
Today's Communication/Plan
-
Advance diet as tolerated
PT/OT
Discharge planning
Assessment / Plan
Assessment / Plan
IMPRESSION: 64-year-old male with PMH of Parkinson's disease, diverticulosis with diverticular bleeding presenting with 1 week history of maroon dark maroon-colored stool, weakness, MONGE and lightheadedness found to have Hb of 5.6 on presentation to
the ED.
Assessment/plan:
#Symptomatic acute blood loss anemia-secondary to acute GI bleed.
-Hb stable s/p 3U PRBC, no further bleeding reported.
-S/p EGD 11/11 with small hiatal hernia, normal stomach, normal examined duodenum. S/p colonoscopy 11/13 with internal hemorrhoids, congested sigmoid mucosa.
-S/p Gastrografin enema 11/13 with possible sigmoid diverticulitis.
-Colorectal surgery saw patient, no indication for surgery.
-CRS appreciated.
-Advance diet to low residue.
-Follow CBC and transfuse with Hb <7.
-Daily MiraLAX per GI.
-Monitor on telemetry.
-PPI discontinued given normal EGD.
-GI follow-up outpatient for possible VCE.
-Hold aspirin for now.
-GI appreciated.
-PT/OT
#Parkinson's disease
-Continue carbidopa-levodopa
#GERD
-Was on chronic PPI.
-EGD with small hiatal hernia.
-Stop PPI per GI.
#Essential hypertension
-Continue losartan 100 mg p.o. daily.
#MDD
-Continue Lexapro 5 mg p.o. daily.
#Schatzki ring
DVT PPx: SCDs
CODE STATUS: Full code
Data:
EGD 11/11/2024:
- Small hiatal hernia.
- Normal stomach.
- Normal examined duodenum.
- No specimens collected.
Colonoscopy 11/13/2024:
- Diverticulosis in the sigmoid colon.
- Erythematous mucosa in the sigmoid colon.
- Congested mucosa in the sigmoid colon.
- Internal hemorrhoids.
- No specimens collected.
Gastrografin enema 11/13/2024:
There is extensive diverticulosis throughout the colon. There is relative narrowing of the colon in the sigmoid colon with mucosal thickening which suggests possible sigmoid diverticulitis.
Anticipated Discharge: Today
Subjective/Interval History
-
Date of Service: November 14, 2024
I saw and examined the patient. He was sitting comfortably on the chair in no acute distress. He states that he has been having regular bowel movement with no obvious hematochezia. He denies chest pain, abdominal pain, nausea, vomiting, diarrhea,
fever, chills, shortness of breath.
Objective Data
-
Labs:
Laboratory Results
11/14/24
06:00
WBC Pending
Hgb Pending
Hct Pending
Plt Count Pending
Sodium Pending
Potassium Pending
Chloride Pending
Carbon Dioxide Pending
BUN Pending
Creatinine Pending
Glucose Pending
Calcium Pending
Vital Signs:
Vital Signs
Temp Pulse Resp BP Pulse Ox
98.0 F 77 18 138/79 97
11/13/24 23:55 11/13/24 23:55 11/13/24 23:55 11/13/24 23:55 11/13/24 23:55
I&O
11/13/24 11/14/24 11/15/24
06:59 06:59 06:59
Intake Total 600 / 600 1400 / 1400
Output Total 1000 / 1000 1900 / 1900
Balance -400 / -400 -500 / -500
Review of Systems
-
History Source: Patient
All other systems: Not reviewed unless documented
Physical Exam
-
General: Well Developed, No Apparent Distress and Comfortable; Negative Respiratory Distress, Fever or Chills
HEENT: Normocephalic and Moist Mucous Membranes
Respiratory: Clear to Auscultation and Non Labored Respirations; Negative Wheezes or Crackles
Cardiac: Regular Rhythm and S1/S2; Negative Murmur or Rub
GI: Soft, Nontender, Nondistended and Normal Bowel Sounds
Musculoskeletal: No Clubbing and No Edema
Skin: Warm and Dry
Neuro: Awake and AO x 3
Psych: Calm
Data Reviewed
-
Diagnostic Radiology: Image personally visualized and interpreted (Barium enema with multiple diverticulosis and suspected sigmoid diverticulitis), Report Reviewed by me and Discussed with Physician
Labs: Labs Reviewed by me
--- NOTE | 2024-11-14 07:25 | W.DCSUMMARY ---
Addendum entered and electronically signed by Leon Vigil MD 11/14/24 23:29:
Read, reviewed, and agree. See same day progress note for additional details. Added Augmentin on DC x 7 days for diverticulitis
Kelvin Vigil MD
Original Note:
Documented by User: Quincy Light MD, Resident 11/14/24 17:30
Discharge Summary
Discharge Data
Date of Admission: 11/10/24
Date of Discharge: 11/14/24
-
Pending Results: No
Hospital Course
Discharging Physician : Leon Vigil MD ; Quincy Light MD
Disposition : Home
Primary care physician : Janie Dia PA
Principal Discharge diagnosis :
Acute GI bleed
Acute blood loss anemia
Sigmoid diverticulitis
Chronic Discharge diagnosis :
Parkinson's disease
Depression
Essential hypertension
GERD
Hospital Course :
64-year-old male with PMH of Parkinson's disease, essential hypertension, depression, diverticulosis, who presented to ED on 11/10/2024 with 1 week history of dark-colored, maroon, cloudy rectal bleeding. He states that the bleeding occurred
only during once daily bowel movements and continued to improve. He was seen by his PCP who conducted a CBC and told him to come to the emergency department.
Acute GI bleed with acute blood loss anemia: While in the ED, he was found to have a hemoglobin of 5.6 and he was admitted for further evaluation and management. A total of 3 units of PRBC was transfused within the first 24 hours and he had no
further rectal bleeding. His vitals remained stable. He was seen by gastroenterology and an EGD was performed which was negative. He was also evaluated with a colonoscopy which reported diverticulosis, erythematous and congested mucosa in the
sigmoid colon and internal hemorrhoids. Due to inability to pass the scope past the sigmoid a Gastrografin enema was done and colorectal surgery was also consulted. His GGE reported extensive diverticulosis throughout the colon and possible
sigmoid diverticulitis. No source of bleeding was identified. Colorectal surgery recommended outpatient evaluation for discussion and possible elective sigmoid colectomy. Patient's diet was advanced to clear liquids and he tolerated. He remained
afebrile, and his vitals remained stable throughout his stay in the hospital. His aspirin was restarted at discharge.
Parkinson's disease: His Sinemet was continued while in the hospital.
Essential hypertension: His losartan was held while in the hospital and will be restarted at discharge.
Depression: He continued to take his Lexapro while in the hospital.
GERD: Patient has been on chronic PPI. After an unremarkable EGD, his PPI was discontinued. Patient should coordinate with his PCP to determine if he would continue to use medication.
Patient has been evaluated and is medically stable for discharge and has been advised to follow-up with GI outpatient for possible VSE. He is also advised to follow-up with his primary care physician within 1 week of discharge.
Procedure findings :
EGD 11/11/2024:
- Small hiatal hernia.
- Normal stomach.
- Normal examined duodenum.
- No specimens collected.
Colonoscopy 11/13/2024:
- Diverticulosis in the sigmoid colon.
- Erythematous mucosa in the sigmoid colon.
- Congested mucosa in the sigmoid colon.
- Internal hemorrhoids.
- No specimens collected.
Gastrografin enema 11/13/2024:
There is extensive diverticulosis throughout the colon. There is relative narrowing of the colon in the sigmoid colon with mucosal thickening which suggests possible sigmoid diverticulitis.
Discharge Plan
-
Patient Disposition: Home (Routine Discharge)
Discharge Diagnosis/Procedures: Acute GI bleed
Acute blood loss anemia
Sigmoid diverticulitis
Parkinson's disease
Depression
Essential hypertension
GERD
Condition: Fair
Diet: Low Fat, Low Cholesterol and Low Residue
Activity: As tolerated
Driving Restrictions: As prior to admission
Bathing Restrictions: None
Referrals:
Qing Warner MD [Active] - (2-4 wks for recurrent diverticulitis)
Janie Dia PA [Family Provider] -
Additional Discharge Medication Instructions: Start MiraLAX as instructed daily.
Take Augmentin my mouth twice daily
Stop Omeprazole
Prescriptions:
New
polyethylene glycol 3350 17 gram Powder In Packet
17 g PO DAILYPRN PRN (Reason: constipation) Qty: 100 0RF
aspirin 81 mg tablet,delayed release (DR/EC)
81 mg PO DAILY Qty: 30 0RF
amoxicillin-pot clavulanate 875-125 mg tablet
1 tab PO BID Qty: 14 0RF
Continued
carbidopa-levodopa 25-100 mg Tablet
2 tab PO Q6H
losartan 100 mg Tablet
100 mg PO DAILY
escitalopram oxalate [Lexapro] 5 mg Tablet
5 mg PO DAILY
Discontinued
aspirin 81 mg Tablet,Delayed Release (Dr/Ec)
81 mg PO DAILY
omeprazole 20 mg Tablet,Delayed Release (Dr/Ec)
20 mg PO DAILY
Discharge Orders:
Discharge Patient (As Directed); Ordered 11/14/24
Ordered By: Quincy Light
Discharge Date and Time
Discharge Date/Time: 11/14/24 17:48
Print Language: TAJIK

Documented by User: Leon Vigil MD 11/14/24 23:25
Discharge Summary
Discharge Data
Date of Admission: 11/10/24
Date of Discharge: 11/14/24
Discharge Plan
-
Patient Disposition: Home (Routine Discharge)
Discharge Diagnosis/Procedures: Acute GI bleed
Acute blood loss anemia
Sigmoid diverticulitis
Parkinson's disease
Depression
Essential hypertension
GERD
Condition: Fair
Diet: Low Fat, Low Cholesterol and Low Residue
Activity: As tolerated
Driving Restrictions: As prior to admission
Bathing Restrictions: None
Referrals:
Qing Warner MD [Active] - (2-4 wks for recurrent diverticulitis)
Janie Dia PA [Family Provider] -
Additional Discharge Medication Instructions: Start MiraLAX as instructed daily.
Take Augmentin my mouth twice daily
Stop Omeprazole
Prescriptions:
New
polyethylene glycol 3350 17 gram Powder In Packet
17 g PO DAILYPRN PRN (Reason: constipation) Qty: 100 0RF
aspirin 81 mg tablet,delayed release (DR/EC)
81 mg PO DAILY Qty: 30 0RF
amoxicillin-pot clavulanate 875-125 mg tablet
1 tab PO BID Qty: 14 0RF
Continued
carbidopa-levodopa 25-100 mg Tablet
2 tab PO Q6H
losartan 100 mg Tablet
100 mg PO DAILY
escitalopram oxalate [Lexapro] 5 mg Tablet
5 mg PO DAILY
Discontinued
aspirin 81 mg Tablet,Delayed Release (Dr/Ec)
81 mg PO DAILY
omeprazole 20 mg Tablet,Delayed Release (Dr/Ec)
20 mg PO DAILY
Discharge Orders:
Discharge Patient (As Directed); Ordered 11/14/24
Ordered By: Quincy Light
Discharge Date and Time
Discharge Date/Time: 11/14/24 17:48
Print Language: TAJIK
[2024-11-14 07:55] VITALS: BP 124/73
[2024-11-14] MEDS: LEXAPRO 5 MG PO (08:12)
[2024-11-14 09:20] LABS: Hematocrit 25.8 % (39.0-52.0); Hemoglobin 8.3 g/dL (13.0-18.0); Mean Corp Hgb Conc. 32.2 g/dL (33.0-37.0); Mean Corpuscular Hgb 27.6 pg (27.0-31.0); Mean Corpuscular Volume 85.7 fL (80.0-94.0); Mean Platelet Volume 9.7 fL (7.4-10.4); Platelet Count 145 10^3/uL (130-400); Red Blood Cell Count 3.01 10^6/uL (4.70-6.10); Red Cell Dist. Width 15.2 % (11.5-14.5); White Blood Cell Count 6.1 10^3/uL (4.8-10.8)
[2024-11-14 09:46] LABS: Blood Urea Nitrogen 10 mg/dl (9-20); Calcium 8.1 mg/dl (8.4-10.2); Carbon Dioxide 26 mmol/L (22-30); Chloride 103 mmol/L (98-107); Estimated Creatinine Clearance 106 ml/min; Glucose 148 mg/dl (70-99); Potassium 3.9 mmol/L (3.5-5.1); Sodium 135 mmol/L (135-145); eGFR > 60.00
--- NOTE | 2024-11-14 09:50 | W.PN.UPDATE ---
Update Note
Progress Note Update
Patient seen by myself and Ida Drake this morning. Please see consult note for recs.
--- NOTE | 2024-11-14 10:01 | W.PN.GI.CBS2 ---
Today's Communication / Plan
-
Colorectal recs today appreciated
Miralax daily
Adv to low residue diet, if tolerates OK from GI perspective for hosp d/c
Close OP FU with Dr Warner will be arranged.
Assessment / Plan
-
Markie is a 64yo with hx parkinson's, diverticulosis, and GERD, HTN, who was admitted with symptomatic severe iron def anemia with maroon stools. His prior 09/2017 colonoscopy-[facility]riguez- IH, grade III, diverticulosis
Impression
- Rectal bleeding with severe iron def anemia
Suspect resolving diverticular bleeding
- Hx diverticulosis and prior diverticular bleed years ago
- Parkinson's
- GERD on chronic PPI
- Schatzki's ring
- hemorrhoids
- depression
- HTN
- Hernia repair
Recommendations
- Barium enema results d/w patient. Suspect diverticulitis vs diverticular bleeding
- Unable to complete colonoscopy due to sigmoid stricture.
- To complete 7 days of abx
- Stools are now brown
- Advance to Low residue diet today and if tolerates ok for hosp d/c
- Colorectal recs appreciated--no surgery
- Start miralax daily going forward daily basis.
We will arrange OP FU with Dr Warner and consider repeat Cscope and or VCE outpatient basis
Return precautions given
Subjective
Subjective
Date of Service: November 14, 2024
He passed six brown BM yesterday. NO abd pain. Upset about lack of solid diet last night. Eager to go home today
Objective
Data Reviewed
Laboratory Data:
Laboratory Results
11/14/24 08:00
11/14/24 08:00
Laboratory Results
Magnesium 2.1 mg/dl (1.6-2.3) 11/11/24 06:36
Total Bilirubin 1.2 mg/dl (0.2-1.3) 11/11/24 06:36
AST 23 U/L (17-59) 11/11/24 06:36
ALT < 10 U/L (0-50) 11/11/24 06:36
Alkaline Phosphatase 80 U/L (38-126) 11/11/24 06:36
Vital Signs and I&O:
Vital Signs
Temp Pulse Resp BP Pulse Ox
98 F 86 18 124/73 98
11/14/24 07:55 11/14/24 07:55 11/14/24 07:55 11/14/24 07:55 11/14/24 08:00
I&O
11/13/24 11/14/24 11/15/24
06:59 06:59 06:59
Intake Total 600 / 600 1400 / 1400
Output Total 1000 / 1000 1900 / 1900
Balance -400 / -400 -500 / -500
Physical Exam
Physical Exam
GEN: No acute distress, conversant, pleasant
HEENT: anicteric, extraocular movements intact, clear oropharynx without exudates
GI: soft, obese non-distended, not tender to palpation, normal active bowel sounds, no hepatosplenomegaly
EXT: warm, well perfused, no edema bilaterally
NEURO: AAOx3, non-focal ++shaking hands
[2024-11-14] MEDS: AUGMENTIN 875 MG/125 MG 1 TABLET PO (10:27)
[2024-11-14 12:35] VITALS: BP 152/76; PULSE 89; O2SAT 98
--- NOTE | 2024-11-14 15:18 | CM ---
CM following for discharge planning; Pt cleared for discharge today to home. Reviewed PT/OT evaluations; No needs identified.
Plan: Discharge to home with no needs.
[2024-11-14 15:38] VITALS: BP 112/65
== END 2024-11-14 17:48 | disposition home or self-care (01) | DRG 378 ==
LOC: 4 WEST ACU 19:18
PROVIDERS: Internal Medicine; Nurse Practitioner Adult Health; Nurse Practitioner Family; Student in an Organized Health Care Education/Training Program; ADMITTING PHYSICIAN Family Medicine; CONSULT PHYSICIAN Internal Medicine Gastroenterology; EMERGENCY PHYSICIAN Emergency Medicine; FAMILY PHYSICIAN Physician Assistant; OTHER PHYSICIAN Surgery
PROC: 30233N1 Transfusion of Nonautologous Red Blood Cells into Peripheral Vein, Percutaneous Approach (ICD-10-PCS; 2024-11-10)
PROC: 0DJ08ZZ Inspection of Upper Intestinal Tract, Via Natural or Artificial Opening Endoscopic (ICD-10-PCS; 2024-11-11)
PROC: 0DJD8ZZ Inspection of Lower Intestinal Tract, Via Natural or Artificial Opening Endoscopic (ICD-10-PCS; 2024-11-13)
DX: K57.33 Diverticulitis of large intestine without perforation or abscess with bleeding (principal); D62 Acute posthemorrhagic anemia; G20.A1 Parkinson's disease without dyskinesia, without mention of fluctuations; F32.9 Major depressive disorder, single episode, unspecified; I10 Essential (primary) hypertension; K21.00 Gastro-esophageal reflux disease with esophagitis, without bleeding; K64.0 First degree hemorrhoids; D50.9 Iron deficiency anemia, unspecified; Z79.899 Other long term (current) drug therapy; K22.2 Esophageal obstruction; K44.9 Diaphragmatic hernia without obstruction or gangrene; E66.9 Obesity, unspecified; Z68.34 Body mass index [BMI] 34.0-34.9, adult; K63.89 Other specified diseases of intestine; Z79.82 Long term (current) use of aspirin; Z82.0 Family history of epilepsy and other diseases of the nervous system
CPT/HCPCS: 36430; 74270; 80048; 80053; 82550; 82607; 82728; 82746; 83540; 83550; 83735; 83880; 85014; 85018; 85025; 85027; 86850; 86900; 86901; 86920; 97162; 97166; 99285; P9016

== ENCOUNTER 2025-01-16 06:11 | Day surgery (SDC) | payer OTHER, SELFPAY ==
[2025-01-16 11:14] VITALS: BMI 34.2
[2025-01-16 11:15] VITALS: BMI 34.2
[2025-01-16 11:16] VITALS: BP 161/75
[2025-01-16 14:05] VITALS: BP 114/77
[2025-01-16 14:15] VITALS: BP 132/70
[2025-01-16 14:30] VITALS: BP 135/87
[2025-01-16 14:45] VITALS: BP 138/79
== END 2025-01-16 15:10 | disposition home or self-care (01) ==
LOC: SDS 06:11
PROVIDERS: ATTENDING PHYSICIAN Internal Medicine Gastroenterology
DX: K62.5 Hemorrhage of anus and rectum (principal); K64.0 First degree hemorrhoids; K57.30 Diverticulosis of large intestine without perforation or abscess without bleeding; K56.699 Other intestinal obstruction unspecified as to partial versus complete obstruction; K63.89 Other specified diseases of intestine; K52.89 Other specified noninfective gastroenteritis and colitis
CPT/HCPCS: 45386; 45380; 88305; C1726; C1769

== ENCOUNTER 2025-01-23 13:40 | Outpatient (RCR) | payer OTHER, SELFPAY ==
[2024-12-26] MEDS: VENOFER 110 MG IV (14:19)
[2025-01-02] MEDS: VENOFER 110 MG IV (13:59)
[2025-01-09] MEDS: VENOFER 110 MG IV (13:38)
[2025-01-17] MEDS: VENOFER 110 MG IV (14:39)
[2025-01-23] MEDS: VENOFER 110 MG IV (14:07)
== END 2025-01-24 08:21 | disposition home or self-care (01) ==
LOC: OID 13:40
PROVIDERS: ATTENDING PHYSICIAN Physician Assistant
DX: D50.0 Iron deficiency anemia secondary to blood loss (chronic) (principal); D50.8 Other iron deficiency anemias; K57.31 Diverticulosis of large intestine without perforation or abscess with bleeding; R53.83 Other fatigue
CPT/HCPCS: 96365; J1756

== ENCOUNTER 2025-04-02 06:25 | Day surgery (SDC) | payer OTHER, SELFPAY | END 2025-04-02 09:36 | disposition home or self-care (01) | LOC: GI 06:25 | PROVIDERS: ATTENDING PHYSICIAN Internal Medicine Gastroenterology | DX: D50.0 Iron deficiency anemia secondary to blood loss (chronic) (principal); K22.10 Ulcer of esophagus without bleeding; K44.9 Diaphragmatic hernia without obstruction or gangrene; K22.2 Esophageal obstruction; K31.89 Other diseases of stomach and duodenum; K29.50 Unspecified chronic gastritis without bleeding; K31.A0 Gastric intestinal metaplasia, unspecified; K20.90 Esophagitis, unspecified without bleeding | CPT/HCPCS: 43239; 88305; 88342 ==

== ENCOUNTER 2025-05-29 06:14 | Day surgery (SDC) | payer OTHER, SELFPAY ==
[2025-05-29 08:19] VITALS: BMI 35.0
[2025-05-29 08:20] VITALS: BMI 35.0
[2025-05-29 08:43] VITALS: BP 174/87
[2025-05-29 10:04] VITALS: BP 132/63
[2025-05-29 10:05] VITALS: BP 125/52
[2025-05-29 10:15] VITALS: BP 139/76
[2025-05-29 10:26] VITALS: BP 155/74
[2025-05-29 11:00] VITALS: BP 148/72
== END 2025-05-29 11:00 | disposition home or self-care (01) ==
LOC: SDS 06:14
PROVIDERS: ATTENDING PHYSICIAN Internal Medicine Gastroenterology
DX: K22.89 Other specified disease of esophagus (principal); K44.9 Diaphragmatic hernia without obstruction or gangrene; K31.89 Other diseases of stomach and duodenum
CPT/HCPCS: 43239; 88305; 88342

== ENCOUNTER 2025-06-07 07:06 | Outpatient (RCR) | payer OTHER, SELFPAY | END 2025-06-07 23:59 | disposition home or self-care (01) | LOC: RPT 07:06 | PROVIDERS: ATTENDING PHYSICIAN Physician Assistant | DX: R42 Dizziness and giddiness (principal); Z73.6 Limitation of activities due to disability | CPT/HCPCS: 97112; 97163 ==

== ENCOUNTER → 2025-06-19 07:08 | Outpatient (REF) | payer OTHER, SELFPAY | LOC: HWRCS 07:08 | PROVIDERS: ATTENDING PHYSICIAN Internal Medicine Cardiovascular Disease; FAMILY PHYSICIAN Physician Assistant | DX: Z01.810 Encounter for preprocedural cardiovascular examination (principal); I45.2 Bifascicular block | CPT/HCPCS: 93306 ==

== ENCOUNTER 2025-06-22 09:06 | Inpatient (IN) | payer OTHER, SELFPAY ==
[2025-06-12 09:39] LABS: Hematocrit 38.7 % (39.0-52.0); Hemoglobin 12.4 g/dL (13.0-18.0); Mean Corp Hgb Conc. 32.0 g/dL (33.0-37.0); Mean Corpuscular Volume 82.9 fL (80.0-94.0); Platelet Count 148 10^3/uL (130-400); Red Cell Dist. Width 15.0 % (11.5-14.5)
[2025-06-12 09:46] LABS: INR 0.92; PT 12.7 Sec (11.4-14.6)
[2025-06-12 09:47] LABS: APTT 31.7 Sec (23.4-35.0)
[2025-06-12 10:02] LABS: ALT (SGPT) < 10 U/L (0-50); AST (SGOT) 19 U/L (17-59); Albumin 4.2 g/dl (3.5-5.0); Alkaline Phosphatase 106 U/L (38-126); Blood Urea Nitrogen 20 mg/dl (9-20); Calcium 9.2 mg/dl (8.4-10.2); Carbon Dioxide 29 mmol/L (22-30); Chloride 104 mmol/L (98-107); Glucose 134 mg/dl (70-99); Potassium 4.6 mmol/L (3.5-5.1); Sodium 138 mmol/L (135-145); Total Protein 6.7 g/dl (6.3-8.2); eGFR > 60.00
[2025-06-12 11:50] LABS: Glycohemoglobin (HgbA1c) 6.8 % (4.0-5.6)
[2025-06-12 14:09] VITALS: BMI 35.3
--- NOTE | 2025-06-13 12:36 | PTCARENOTE ---
Patients 06/12 ECG abnormal- reviewed by Dr. Jackson- no additional interventions required
[2025-06-22] VITALS (13 sets, daily range): BP systolic 139–162; BP diastolic 64–87; BMI 35.3; BMI 35.6
[2025-06-22] MEDS: LYRICA 150 MG PO (09:47)
[2025-06-22] MEDS: TYLENOL 1000 MG PO ×3 (09:48→23:43)
[2025-06-22] MEDS: NORMOSOL-R/PLASMALYTE-A 1000 IV ×2 (09:48→18:30)
[2025-06-22] MEDS: CELEBREX 200 MG PO (09:48)
[2025-06-22] MEDS: HEPARIN 5000 UNITS SC (09:54)
[2025-06-22] MEDS: RELISTOR 12 MG SC (09:56)
--- NOTE | 2025-06-22 17:24 | W.IMMPOSTOP ---
Addendum entered and electronically signed by Tre Diallo MD 06/22/25 17:44:
spoke with brother and updated him over the phone
Original Note:
Surgical Immed Post Op Note
-
Primary Surgeon: Tre Diallo MD
Assisting Surgeon: NICKOLAS Cordoba, ANTHONY Gooden
Pre-op Diagnosis: Diverticular stricture
Post-op Diagnosis: Diverticular stricture
Procedure Performed: Robotic sigmoidectomy, lysis of adhesions, mesenteric angiography, flexible sigmoidoscopy, laparoscopic TAP block
Anesthesia Type: General
Specimen / Cultures: Rectosigmoid
Estimated Blood Loss: 150 mL
IVF: 1.8 L
UOP: 700 mL
Complications: None
Operative Findings: Entered with Veress technique; placed 4 ports and operations manager assistant port; made a 4 cm Pfannenstiel; chronically inflamed and tortuous sigmoid colon with adhesions to the anterior pelvis and left pelvic brim; sigmoid was bulky and curled
on itself with dense adhesions; attempted medial to lateral, switched to lateral to medial; easily identified the left ureter and iliac vessels; mobilized proximally up to the mid descending colon; mobilized the rectosigmoid; there was significant
fibrosis in the retroperitoneum, making the dissection of the GARY and left pelvic brim difficult; mobilized the rectosigmoid; flexible sigmoidoscopy; stapled distal to the rectosigmoid junction with a 60 mm green load; dissected the GARY
circumferentially and divided with the vessel sealer; vessel appeared thickened and was leaking blood briskly from the corner; this was controlled with a [id number] 3-0 Vicryl; placed anvil and stapled proximally at the proximal sigmoid on
healthy colon with 60 mm blue load after confirming perfusion with ICG; placed Surgiflo on the GARY stump; on the rectal staple line, there was a outpouching created in the corner that would likely interfere with the anastomosis; I stapled this off
using an additional 60 mm blue load; performed EEA stapled anastomosis; donuts intact, leak test negative; on flexible sigmoidoscopy, identified oozing from the staple line; placed endoscopic clip and bleeding was controlled; closed the peritoneum
on the anterior pelvis with a running 3-0 Vicryl; performed laparoscopic TAP block; remove the specimen through the Pfannenstiel after extending the incision to about 8 cm in length; closed in the usual fashion
[2025-06-22 17:35] LABS: Glucose - Point of Care 199 mg/dl (70-99)
--- NOTE | 2025-06-22 17:38 | OR.RPT ---
Operative Report
Operative Report
DATE OF OPERATION: 06/22/2025
SURGEON: Tre Diallo MD
PREOPERATIVE DIAGNOSIS: Diverticular stricture
POSTOPERATIVE DIAGNOSIS: Diverticular stricture
OPERATION: Robotic sigmoidectomy, adhesiolysis greater than 30 minutes, mesenteric angiography with ICG, flexible sigmoidoscopy, laparoscopic TAP block
ASSISTANTS:
1. NICKOLAS Cordoba
2. ANTHONY Gooden
ANESTHESIA: General
ESTIMATED BLOOD LOSS: 150 mL
IVF: 1.8 L
URINE OUTPUT: 700 mL
FINDINGS:
1. Chronically inflamed and torturous sigmoid colon densely adherent to itself, the anterior pelvis and left pelvic brim
2. Performed EEA stapled anastomosis from proximal rectum to proximal sigmoid; donuts intact x 2, negative leak test, flexible sigmoidoscopy showed one point of oozing and endoscopic clip was placed
SPECIMENS:
1. Rectosigmoid
DRAINS: None
COMPLICATIONS: No immediate complications.
INDICATIONS: The patient is a 65-year-old male who initially presented to the [place] ED for hematochezia. His Hb was 5.6 and required 3 transfusions. He underwent EGD which did not show a source of the bleeding. He underwent colonoscopy, but
due to diverticular stricture, Dr. Warner was unable to traverse the sigmoid. He recovered with nonoperative measures. He later underwent a colonoscopy by Dr. Reyes. He was able to dilate the sigmoid stricture in order to complete the colonoscopy.
However, due to the severity of the stricture, he recommended undergoing sigmoidectomy. Dr. Warner also completed the work-up for his GI bleed and felt that the bleeding was most likely from the diverticular disease within the sigmoid colon. She
also agreed with sigmoidectomy. I reviewed the risks and benefits of sigmoidectomy versus continued nonoperative measures and the patient elected to proceed with surgery. The operation was discussed with the patient in detail, including the risks,
benefits and alternatives. Risks described included, but not limited to, bleeding, infection, anastomotic leak, damage to nearby structures (i.e.- ureter, bowel, solid organs), incisional hernia, need for ostomy creation, conversion to open,
recurrence of diverticulitis or diverticular bleeding and anesthetic risks, including but not limited to OH, stroke, DVT/PE, respiratory failure and . The patient understood and agreed to proceed.
PROCEDURE IN DETAIL: The patient was taken to the operating room and placed on the operating table in supine position. Sequential compression devices were placed bilaterally. General anesthesia was induced and the patient was intubated without
complication. The patient was placed in lithotomy position with both arms tucked. Cruz catheter was placed with sterile technique. The abdomen was shaved, prepped and draped in a sterile fashion. A time-out was performed verifying the correct
patient, procedure, operative site, positioning, and special equipment. Anesthesia placed an orogastric tube. Preoperative antibiotics were given. A marking pen was used to brandon out the midline.
An 8 mm incision at Ding's point was made with an 11 blade scalpel. A Veress needle was used to gain abdominal access. After 3 clicks, the insufflation was connected to the Veress needle and the opening pressure was noted to be less than 8 mmHg.
The abdomen was insufflated to a pressure of 12 mmHg. An 8 mm robotic trocar was inserted. The robotic camera was advanced and intra-abdominal placement was confirmed. The abdomen was examined. No injuries were noted from port entry or from the
Veress needle. No concerning lesions were noted on the surface of the liver or the peritoneum. The remaining three 8mm robotic ports were placed under direct visualization in a diagonal fashion from Ding's point to the right lower quadrant, as
well as an 8mm assist port in the right lateral mid abdomen, taking care to avoid injury to the right epigastric vessels. The left upper quadrant port was changed to the air seal port.
A 4 cm Pfannenstiel incision was created 2 fingerbreadths above the pubic symphysis. This was carried down to the anterior fascia with electrocautery and hemostasis was assured. The fascia was incised to just beyond the length of the skin
incision. The fascia was grasped with Sandi's and elevated. The adhesions to the anterior fascia were taken down bluntly from the rectus abdominis muscle and the midline attachment was taken down with electrocautery. This was performed both
superiorly and inferiorly to our incision. The rectus was split along the midline, first scoring the linea alba with electrocautery, then bluntly with a Apolonia clamp to reveal the peritoneum, which was grasped and elevated with Kellys. The
peritoneum was incised with Metzenbaum scissors, taking care to avoid injury to intraperitoneal structures. The peritoneum was incised cranially and caudally to the greatest extent that our incision would allow, taking care to avoid injury to the
bladder. A small Derrick with port cap was placed and a robotic 12 mm port was placed through the port cap. The patient was placed in steep trendelenburg and [id number]. Using laparoscopic graspers, the omentum was retracted above the
transverse colon. The robot was docked from the patient's left side. From the RLQ to Ding's point, the instruments introduced were the scissors, camera, bipolar grasper and tip-up grasper, respectively.
The small bowel was retracted out of the pelvis and towards the right upper quadrant. There were some adhesions from the terminal ileum to the right pelvic brim, which were freed with sharp dissection. There was a flap of retroperitoneal tissue
overlying the cecum, adherent to the mesentery of the terminal ileum. This was keeping the cecum safe from my operation and was therefore left in place. The sigmoid colon was significantly thickened and tortuous. It was looped on itself with dense
adhesions, making retraction difficult. There were dense adhesions from the sigmoid colon to the anterior pelvis as well as the left pelvis and left pelvic brim. These were taken down meticulously, avoiding injury to the iliac vessels, the left
ureter and the bladder. I attempted to perform a medial to lateral dissection. The peritoneum overlying the sacral promontory was scored and entered. This dissection was taken medially toward the left ureter and superiorly towards the GARY pedicle,
taking care to avoid injury to the hypogastric nerves. However, the normal planes were distorted due to the amount of adiposity and fibrosis, making this dissection difficult. I switched to a lateral to medial approach. I dissected the sigmoid
colon from the left pelvis and left pelvic brim. I easily identified the left ureter and left iliac vessels and kept them safe from my dissection. I continued my dissection proximally, taking down the white line of Toldt up to the mid-descending
colon. I returned to a medial approach and still had difficulty obtaining the correct plane between the mesentery of the sigmoid colon and the retroperitoneum. I was able to identify the GARY pedicle. In order to mobilize this area better, I
continued my dissection distally. I entered the presacral space and mobilized the rectosigmoid, taking care to avoid injury to the presacral veins. I was able to identify the right ureter, and kept it safe from my dissection. I incised the
paracolic peritoneum on both sides up to a few centimeters proximal to the peritoneal reflection. I connected the right and left dissections to my posterior dissection, keeping the ureters safe.
At this point, I had the rectosigmoid nicely mobilized. I proceeded with my distal transection. I performed a flexible sigmoidoscopy. I encountered copious liquid stool that was irrigated and suctioned. The rectum and rectosigmoid appeared
healthy. I passed EEA sizers starting from small and increasing to large. The sizers passed easily up to the rectosigmoid junction. I created a tunnel in the mesorectum at my proposed transection point, just distal to the rectosigmoid junction.
I ligated the superior rectal artery with the vessel sealer. The stump was hemostatic. I divided the proximal rectum with the 60 mm robotic stapler with a green load. The staple line was hemostatic. I did notice an outpouching of rectum at the
left end of the staple line, likely due to a slight twist or fold in the rectum during stapling. I freed this up from the mesentery. This would be easy to transect with an additional stapling, which I planned to do once I was ready for my
anastomosis.
I returned to the GARY pedicle. Now that the rectosigmoid was completely mobilized, dissecting the GARY was a little bit easier, but still difficult due to the amount of fibrosis in the retroperitoneum. I was able to circumferentially dissect the
GARY pedicle. I came across the pedicle with the vessel sealer, burning high and low and then cutting. However, from the corner of the ligated artery, brisk bleeding was immediately encountered. I was able to control the bleeding with one 3-0
Vicryl in a [id number] fashion. I estimated that I lost about 100 mL of blood prior to hemostasis. The stump of the GARY was irrigated and hemostasis was confirmed. I selected my proximal transection point. I palpated the thickened sigmoid
and identified healthy colon in the proximal sigmoid colon. I ligated the mesentery from the divided GARY pedicle up into this point. I confirmed adequate perfusion to my proposed transection point using ICG.
I elected to proceed with an intracorporeal end-to-end stapled anastomosis with EEA stapler. A colotomy in the devascularized segment of sigmoid colon was created using the robotic scissors at a point distal to my proposed proximal transection
point. The anvil with a long Prolene suture attached at the tip was carefully passed through the colotomy and advanced proximally up the descending colon, with the long Prolene remaining outside of the colon. The colotomy was closed around the
Prolene stitch using a V-Loc running stitch. The robotic stapler with a blue load was used to staple and divide the descending colon at our proposed transection point where adequate perfusion was noted on firefly. The specimen was then placed in
the left upper quadrant. The Prolene attached to the anvil was grasped and pulled through the staple line after removing a few leroy. I grasped and elevated the anvil and cleaned up the staple line from intervening mesentery and fat. The anvil
was seated along the staple line nicely without intervening diverticula or mesentery.
I checked the reach of the proposed anastomosis once more and it was plenty adequate. The operative field was surveyed and hemostasis was ensured. On the GARY stump, I placed Surgiflo for bleeding prophylaxis. I transected the outpouching from the
rectal staple line using a 60 mm green load on the robotic stapler. Sizers were passed up the rectum once more to ensure adequate circumference and length. The EEA stapler was passed transanally to the distal staple line. The pin was extended and
was connected with the anvil. After ensuring there was no twist to the mesentery and there was no tension, the EEA stapler was then closed for 1.5 minutes and fired. Both donuts were intact. A leak test was performed by filling the pelvis with
saline, occluding the proximal lumen and insufflating with the flexible sigmoidoscope. There was no evidence of leak from the anastomosis. Endoscopically, the anastomosis was intact. There was one spot that was noted to be oozing blood. I placed
an endoscopic clip at this point and hemostasis was achieved. The colorectum was desufflated and the flexible sigmoidoscope removed. The operative field was assessed once more. Hemostasis was assured. Due to the dense adhesions on the anterior
pelvis, there was an opening in the peritoneum overlying the bladder. I backfilled the bladder to ensure that there was no injury. No leaking of fluid was seen. I emptied the bladder and closed the peritoneum with a running 3-0 V-Loc stitch.
The robotic instruments were removed and the robot was undocked. I removed the specimen. Due to the thickness of the sigmoid colon, I had to extend the Pfannenstiel incision to a total of 8 cm. The specimen was checked on the back table. Both
staple lines were across healthy colon. A stitch marked the proximal end. Using laparoscopic visualization, a TAP block was performed using a total of 30 mL of 0.25% Marcaine with epinephrine mixed with dexamethasone and injecting in the transverse
abdominis plane bilaterally. The remaining ports were removed under direct visualization and no bleeding was noted. The Pfannenstiel incision was closed in layers. First, the peritoneum was closed with a running 0-Vicryl stitch. Then, the
anterior fascia was closed using a #1 Stratafix suture. The incisions were irrigated. The remaining 30 cc of 0.25% Marcaine with epinephrine mixed with dexamethasone were injected around the incisions. The incisions were closed with running
subcuticular 4-0 Monocryl and dressed with Dermabond.
At this point, the procedure was complete. The patient was awoken and extubated without complication. The right stent was removed, and the left stent and Cruz were left in place. All needle, sponge and instrument counts were reported as correct.
The patient tolerated the procedure well and was transferred to the recovery room in stable condition with the cruz in place.
ANTHONY Gooedn, ophthalmology assistant, was necessary during this procedure for assistance with placing ports and closing skin incisions. I was present for the entire duration of the case.
DICTATED BY: Tre Diallo MD
[2025-06-22] MEDS: TORADOL 15 MG IV ×2 (18:11→23:44)
[2025-06-22] MEDS: SINEMET 25-100 2 TABLET PO (21:33)
[2025-06-22] MEDS: ROXICODONE 5 MG PO (21:43)
[2025-06-23 03:00] VITALS: BP 144/83
[2025-06-23 06:00] VITALS: BMI 34.8
[2025-06-23] MEDS: TYLENOL 1000 MG PO ×3 (06:03→18:48)
[2025-06-23] MEDS: TORADOL 15 MG IV ×3 (06:03→18:09)
[2025-06-23 06:16] LABS: Hematocrit 34.2 % (39.0-52.0); Hemoglobin 10.8 g/dL (13.0-18.0); Mean Corp Hgb Conc. 31.6 g/dL (33.0-37.0); Mean Corpuscular Volume 82.4 fL (80.0-94.0); Nucleated Red Blood Cells % 0 % (-); Platelet Count 145 10^3/uL (130-400); Red Cell Dist. Width 15.0 % (11.5-14.5)
[2025-06-23 06:28] LABS: Blood Urea Nitrogen 17 mg/dl (9-20); Calcium 7.9 mg/dl (8.4-10.2); Carbon Dioxide 28 mmol/L (22-30); Chloride 102 mmol/L (98-107); Estimated Creatinine Clearance 106 ml/min; Glucose 151 mg/dl (70-99); Magnesium 2.3 mg/dl (1.6-2.3); Potassium 4.2 mmol/L (3.5-5.1); Sodium 136 mmol/L (135-145); eGFR > 60.00
[2025-06-23 07:05] VITALS: BP 141/70
[2025-06-23] MEDS: SINEMET 25-100 2 TABLET PO ×3 (08:59→21:57)
[2025-06-23] MEDS: LEXAPRO 5 MG PO (08:59)
[2025-06-23] MEDS: PROTONIX 40 MG PO (08:59)
[2025-06-23] MEDS: COZAAR 100 MG PO (09:00)
[2025-06-23] MEDS: RELISTOR 12 MG SC (09:00)
[2025-06-23 11:00] VITALS: BP 122/60
[2025-06-23] MEDS: NORMOSOL-R/PLASMALYTE-A 1000 IV (12:48)
--- NOTE | 2025-06-23 13:49 | CM ---
CM following re: discharge planning.
Reviewed pt's chart, met with pt.
Pt is a 65 year old male, admitted with primary dx of Diverticular stricture, POD #1 s/p Robotic sigmoidectomy, lysis of adhesions, mesenteric angiography, flexible sigmoidoscopy, laparoscopic TAP block.
Pt reports he lives alone in a [facility], 4th floor with elevator. Pt reports he has no children and he has a brother who is disabled.
PT and OT will evaluate the pt to determine a level of carte at discharge.
PCP: Janie Dia
Pharmacy: [facility]
D/c plan: home with most likely VN services. PT and OT to evaluate
CM will follow with discharge plan updates as hospitalization progresses
[2025-06-23 15:05] VITALS: BP 133/55
--- NOTE | 2025-06-23 15:34 | W.PN.CRS1 ---
Addendum entered and electronically signed by Larry Coulter MD 06/23/25 16:26:
I saw and examined the patient.
The Quality Control Inspector Heading's note was reviewed and I agree with the note.
Comment: No complaints, pain controlled, denies passing flatus, norman LRD, would cont current mgmt for now
Original Note:
Today's Communication / Plan
-
Regular diet
Assessment/Plan
-
65 yo male with a h/o diverticular stricture presenting for operative management POD #1 Robotic sigmoidectomy, lysis of adhesions, mesenteric angiography, flexible sigmoidoscopy, laparoscopic TAP block
AFVSS
Acute blood loss anemia present with hemodilution component, EBL of 150
Tolerating diet thus far, minimal pain
Plan:
h/o SP: cpap ordered for noc at home settings
c/w home meds
Trend labs
D/C IVF
Continue regular diet as tolerated
Scheduled tylenol/toradol and prn oxycodone/dilaudid
SCDs/lovenox for VTE ppx
Tentative d/c tomorrow if pain well controlled and tolerating diet
Subjective Data
Procedure
06/22/25 Robotic sigmoidectomy, lysis of adhesions, mesenteric angiography, flexible sigmoidoscopy, laparoscopic TAP block
Subjective Data
Date of Service: June 23, 2025
Pt seen and examined at bedside with Dr. Coulter. Large breakfast which went well. Denies n/v. Not yet passing flatus. Denies pain. Questions addressed.
Objective Data
-
Vital Signs
Temp Pulse Resp BP Pulse Ox
97.9 F 68 16 122/60 94
06/23/25 11:00 06/23/25 11:00 06/23/25 11:00 06/23/25 11:00 06/23/25 11:00
Intake & Output
06/22/25 06/23/2506/24/25
06:59 06:59 06:59
Intake Total 2139 / 2139
Output Total 1625 / 1625 150 / 150
Balance 515 / 515 -150 / -150
Intake:
Oral fluids 1440 / 1440
IV fluids (Total) 700 / 700
Normosol 100 / 100
Output:
Urine, Robertson 1625 / 1625 150 / 150
Lab Results
06/23/25 05:36
06/23/25 05:36
Physical Exam
-
General: No Acute Distress
Abdomen: Soft, Non Distended and Non Tender
Skin: Warm and Dry
Incision: Clear, Dry, Intact
[2025-06-23] MEDS: LOVENOX 40 MG SC (18:09)
[2025-06-23 19:00] VITALS: BP 138/59
[2025-06-23 23:02] VITALS: BP 136/64
[2025-06-24 00:05] VITALS: PULSE 94
[2025-06-24] MEDS: TYLENOL 1000 MG PO ×3 (00:22→12:05)
[2025-06-24] MEDS: TORADOL 15 MG IV ×3 (00:22→12:06)
[2025-06-24 03:00] VITALS: BP 155/64
[2025-06-24 03:11] VITALS: BP 155/64
[2025-06-24 06:00] VITALS: BMI 35.3
[2025-06-24 07:05] VITALS: BP 162/68
[2025-06-24] MEDS: PROTONIX 40 MG PO (08:06)
[2025-06-24] MEDS: SINEMET 25-100 2 TABLET PO ×2 (08:06→16:09)
[2025-06-24] MEDS: COZAAR 100 MG PO (08:06)
[2025-06-24] MEDS: RELISTOR 12 MG SC (08:07)
[2025-06-24] MEDS: LEXAPRO 5 MG PO (08:08)
[2025-06-24 08:12] LABS: Hematocrit 33.4 % (39.0-52.0); Hemoglobin 10.5 g/dL (13.0-18.0); Mean Corp Hgb Conc. 31.4 g/dL (33.0-37.0); Mean Corpuscular Volume 85.6 fL (80.0-94.0); Platelet Count 121 10^3/uL (130-400); Red Cell Dist. Width 15.3 % (11.5-14.5)
[2025-06-24 09:10] LABS: Blood Urea Nitrogen 24 mg/dl (9-20); Calcium 7.9 mg/dl (8.4-10.2); Carbon Dioxide 28 mmol/L (22-30); Chloride 107 mmol/L (98-107); Estimated Creatinine Clearance 105 ml/min; Glucose 139 mg/dl (70-99); Potassium 3.9 mmol/L (3.5-5.1); Sodium 137 mmol/L (135-145); eGFR > 60.00
[2025-06-24 11:00] VITALS: BP 148/78
--- NOTE | 2025-06-24 12:17 | W.PN.CRS1 ---
Addendum entered and electronically signed by GREG Lin 06/24/25 12:31:
Discussed with social work and nursing. Pt verbalizing difficulty walking and preforming ADLS. Will consult PT/OT to clear prior to d/c
Original Note:
Today's Communication / Plan
-
dispo planning
Assessment/Plan
-
65 yo male with a h/o diverticular stricture presenting for operative management POD #2 Robotic sigmoidectomy, lysis of adhesions, mesenteric angiography, flexible sigmoidoscopy, laparoscopic TAP block
AFVSS
Acute blood loss anemia present with hemodilution component, EBL of 150. Stable H/H on repeat.
Tolerating diet, passing flatus, minimal pain
Plan:
h/o SP: cpap ordered for noc at home settings
c/w home meds
Continue regular diet as tolerated
Scheduled tylenol/toradol and prn oxycodone
SCDs/lovenox for VTE ppx
Discharge to home
Subjective Data
Procedure
06/22/25 Robotic sigmoidectomy, lysis of adhesions, mesenteric angiography, flexible sigmoidoscopy, laparoscopic TAP block
Subjective Data
Date of Service: June 24, 2025
Pt seen and examined at bedside with Dr. Coulter. Denies n/v. Tolerating diet. OOB to chair. Passing a good deal of flatus. Minimal discomfort.
Objective Data
-
Vital Signs
Temp Pulse Resp BP Pulse Ox
98.2 F 60 16 148/78 97
06/24/25 11:00 06/24/25 11:00 06/24/25 11:00 06/24/25 11:00 06/24/25 11:00
Intake & Output
06/23/25 06/24/25 06/25/25
06:59 06:59 06:59
Intake Total 2140 / 2140 1840 / 1840
Output Total 1625 / 162 500 / 500
Balance 515 / 515 1340 / 1340
Intake:
Oral fluids 1440 / 1440 1440 / 1440
IV fluids (Total) 700 / 700 400 / 400
Normosol 100 / 100
Output:
Urine, Robertson 1625 / 1625 150 / 150
Urine, Voided 350 / 350
Other:
Number of approximated SMALL 1 1
amounts of urine
Number of approximated MODERATE 4
amounts of urine
Number of unmeasured liquid
stools
Rectum 1
Lab Results
06/24/25 07:59
06/24/25 07:59
Physical Exam
-
General: No Acute Distress
Abdomen: Soft, Non Distended and Non Tender
Skin: Warm and Dry
Incision: Clear, Dry, Intact
--- NOTE | 2025-06-24 12:25 | W.DS.TRANS ---
Addendum entered and electronically signed by GREG Lin 06/24/25 17:00:
dictated #[id number]
Original Note:
DC Summary - Yoke Setter
-
Discharge Instructions:
Discharge Diagnosis/Procedures Robotic sigmoidectomy for diverticular stricture
Diet Regular,As tolerated
Activity No strenuous activity
Additional Activity Do not lift over 10lbs (gallon of milk)
Bathing Restrictions OK to Shower
Wound Care Allow the glue to flake off your incisions on
its own over the next 2-3 weeks. Avoid soaking
in tubs or swimming.
Instructions:
Stand-Alone Forms:
Changes to Home Medications: No
Discharge Medications:
DC Medications w/original date entered in [employer]
carbidopa 25 mg-levodopa 100 mg tablet 2 tab PO TID movement disorder 11/10/24
escitalopram oxalate 5 mg tablet (Lexapro) 5 mg PO DAILY Mental Health 11/10/24
losartan 100 mg tablet 100 mg PO DAILY Blood Pressure 11/10/24
omeprazole 40 mg capsule,delayed release 40 mg PO DAILY Gastrointestinal Issue 05/29/25
aspirin 81 mg tablet,delayed release 81 mg PO DAILY Blood Clot Prevention/Tx 06/15/25
ferrous sulfate 325 mg (65 mg iron) tablet (Iron (ferrous sulfate)) 325 mg PO DAILY Supplement 06/15/25
acetaminophen 325 mg tablet 650 mg (2 x 325 mg) PO Q4HPRN PRN mild pain #1 tab 06/24/25
ibuprofen 200 mg tablet 400 - 600 mg (2 - 3 x 200 mg) PO Q6HPRN PRN moderate pain #1 tab 06/24/25
oxycodone 5 mg tablet 5 mg PO Q4HPRN PRN breakthrough/severe pain #10 tabs 06/24/25
Home Medication Changes
Pending Results: No
--- NOTE | 2025-06-24 12:45 | CM ---
Addendum entered by Praful Arana 06/24/25 13:17:
PT evaluations noted - home PT recommended and a walker. Pt is aware, expressed his agreement and pt stated his brother will transport home. VN choices given, pt preferred [facility]. A referral to [facility] made.
PT to issue a walker, A script for a walker on the chart.
Please fax discharge instructions to [facility] at [phone]
D/C plan: home with [facility] and family support. Brother to transport
Original Note:
CM following re: discharge planning.
Reviewed pt's chart, met with pt.
Discharge order noted. Pt is aware and he stated he does not feel he can function at home independently.
PT evaluation requested to determine a level of care at discharge. CM spoke to PT and she will evaluate the pt shortly.
IMM reviewed, placed on chart, pt has a copy.
D/C plan: Awaiting for PT evaluations and recommendations.
[2025-06-24 15:05] VITALS: BP 143/75
== END 2025-06-24 17:00 | disposition home health service (06) | DRG 329 ==
LOC: 2 SOUTH 09:06
PROVIDERS: Registered Nurse; ADMITTING PHYSICIAN Surgery; FAMILY PHYSICIAN Physician Assistant
PROC: 0DBN4ZZ Excision of Sigmoid Colon, Percutaneous Endoscopic Approach (ICD-10-PCS; 2025-06-22)
PROC: 4A1BXSH Monitoring of Gastrointestinal Vascular Perfusion using Indocyanine Green Dye, External Approach (ICD-10-PCS; 2025-06-22)
PROC: 0DJD8ZZ Inspection of Lower Intestinal Tract, Via Natural or Artificial Opening Endoscopic (ICD-10-PCS; 2025-06-22)
PROC: 8E0W4CZ Robotic Assisted Procedure of Trunk Region, Percutaneous Endoscopic Approach (ICD-10-PCS; 2025-06-22)
PROC: 5A09357 Assistance with Respiratory Ventilation, Less than 24 Consecutive Hours, Continuous Positive Airway Pressure (ICD-10-PCS; 2025-06-23)
DX: K57.31 Diverticulosis of large intestine without perforation or abscess with bleeding (principal); K68.2 Retroperitoneal fibrosis; K56.699 Other intestinal obstruction unspecified as to partial versus complete obstruction; D62 Acute posthemorrhagic anemia; K66.0 Peritoneal adhesions (postprocedural) (postinfection); G47.33 Obstructive sleep apnea (adult) (pediatric); G20.A1 Parkinson's disease without dyskinesia, without mention of fluctuations; K21.9 Gastro-esophageal reflux disease without esophagitis; I10 Essential (primary) hypertension; R73.03 Prediabetes; J44.9 Chronic obstructive pulmonary disease, unspecified; Z79.82 Long term (current) use of aspirin; Z79.899 Other long term (current) drug therapy
CPT/HCPCS: 36415; 71046; 80048; 80053; 82962; 83036; 83735; 85025; 85027; 85610; 85730; 86850; 86900; 86901; 88307; 93005; 94660; 97162; P9045

== ENCOUNTER 2025-09-21 10:25 | Outpatient (RCR) | payer OTHER, SELFPAY ==
[2025-09-05 10:00] VITALS: BP 154/59
[2025-09-05] MEDS: VENOFER 110 MG IV (10:11)
[2025-09-05 11:30] VITALS: BP 150/65
[2025-09-11 14:04] VITALS: BP 134/70
[2025-09-11] MEDS: VENOFER 110 MG IV (14:28)
[2025-09-11 15:37] VITALS: BP 140/78
[2025-09-18 14:00] VITALS: BP 118/72
[2025-09-18 14:20] LABS: Hematocrit 39.6 % (39.0-52.0); Hemoglobin 12.3 g/dL (13.0-18.0); Mean Corp Hgb Conc. 31.1 g/dL (33.0-37.0); Mean Corpuscular Volume 85.7 fL (80.0-94.0); Platelet Count 138 10^3/uL (130-400); Red Cell Dist. Width 15.6 % (11.5-14.5)
[2025-09-18] MEDS: VENOFER 110 MG IV (14:21)
[2025-09-18 15:13] LABS: Iron 43 ug/dl (49-181)
[2025-09-18 15:29] LABS: Total Iron Binding Capacity 276 ug/dl (261-462)
[2025-09-18 15:48] LABS: Ferritin 95.9 ng/ml (17.9-464.0)
[2025-09-18 15:50] VITALS: BP 142/69
[2025-09-21] MEDS: VENOFER 110 MG IV (11:06)
[2025-09-21 11:10] VITALS: BP 186/80
== END 2025-09-24 09:58 | disposition home or self-care (01) ==
LOC: OID 10:25
PROVIDERS: ATTENDING PHYSICIAN Physician Assistant; FAMILY PHYSICIAN Family Medicine
DX: D50.0 Iron deficiency anemia secondary to blood loss (chronic) (principal); K92.2 Gastrointestinal hemorrhage, unspecified
CPT/HCPCS: 36415; 82728; 83540; 83550; 85025; 96365; J1756